=== PATIENT | female | born 2000 | race Caucasian/White ===

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

== ENCOUNTER 2020-10-31 09:55 | Emergency (ER) | payer MEDICARE, BC, OTHER, SELFPAY ==
--- NOTE | ~2020-10-31 | XR_ITS ---
XR ankle LT min 3V 10/31/2020 11:10 INDICATION: Left ankle pain. Loose. PROCEDURE: 4 views left ankle COMPARISON: No prior studies for comparison. FINDINGS: Fracture, dislocation or subluxation is not identified. There is mild soft tissue swelling medial to the ankle/midfoot. No foreign bodies are identified. IMPRESSION: 1: NO ACUTE BONE OR JOINT ABNORMALITY IDENTIFIED. Reviewed, dictated and finalized at location A.
[2020-10-31 10:41] VITALS: BP 110/65; PULSE 80; RESP 16; TEMP 36.6; O2SAT 100
[2020-10-31 11:09] VITALS: BP 112/68; PULSE 80; RESP 18; TEMP 36.6; O2SAT 100
--- NOTE | 2020-10-31 12:01 | ED.LOWEXIN ---
HPI - Extremity Injury (Lower) General Chief Complaint: Extremity Injury, Lower Stated Complaint: ankle injury Time Seen by Provider: 10/31/20 11:11 Source: patient and family Mode of arrival: ambulatory Limitations: no limitations History of Present Illness HPI Narrative: This is a 20-year-old female that presents to the emergency department for left ankle pain present over the last week. Does not report any certain injury to the area. Pain is on the medial aspect of the ankle and worse with weightbearing. Relieved with anti-inflammatories. Denies decreased range of motion or numbness. Related Data Home Medications Medication Instructions Recorded Confirmed baclofen 20 mg PO BID 03/11/19 03/23/19 norethindrone acetate 5 mg PO HS 03/11/19 05/15/19 oxcarbazepine 300 mg PO BID 03/11/19 05/15/19 zonisamide [Zonegran] 100 mg PO BID 03/11/19 05/15/19 Allergies Allergy/AdvReac Type Severity Reaction Status Date / Time No Known Allergies Allergy Verified 05/15/19 15:34 Review of Systems Review of Systems: CONSTITUTIONAL: Denies fever MUSCULOSKELETAL: Reports joint pain, and myalgia. 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 Father No problems noted. Social History Social History Social History: The patient lives at home with her parents. She is a senior in high school where she attends modified classes due to her intellectual disability. She ambulates with a cane at home but uses a wheelchair at school. She is the youngest of 3 children. Primary care physician: Dr. Alla Polo ([facility] [place], [place]) Smoking status: Never smoker Alcohol intake: never Substance use: never Substance use type: does not use Gender identity (if verbalized by the patient): Female Spiritual care concerns: No Agree to blood products: Yes Exam Narrative: GENERAL: Well-appearing, well-nourished, and in no acute distress. HEAD: Normocephalic, atraumatic. EYES: EOMI. EXTREMITIES: Normal range of motion. No edema or obvious deformity. Normal DP pulses. Normal sensation SKIN: Warm, dry, no rash. NEURO: No focal deficits. Alert and oriented x3. PSYCH: Normal mood and affect Course Vital Signs Vital signs: Vital Signs Temperature 97.9 F 10/31/20 10:41 Pulse Rate 80 10/31/20 10:41 Respiratory Rate 16 10/31/20 10:41 Blood Pressure 110/65 10/31/20 10:41 Pulse Oximetry 100 10/31/20 10:41 Temperature 97.8 F 10/31/20 11:09 Pulse Rate 80 10/31/20 11:09 Respiratory Rate 18 10/31/20 11:09 Blood Pressure 112/68 10/31/20 11:09 Pulse Oximetry 100 10/31/20 11:09 MDM - Extremity Injury (Lower) MDM Narrative Medical decision making narrative: Patient presents to the emergency department for left ankle pain present x1 week. No certain injury noted. Left ankle x-ray is without acute osseous abnormalities. She is neurovascularly intact. Patient instructed to rest, ice and take [id number] pain medication as needed. She is to follow-up with primary care doctor. She was given warnings to return to the ER Imaging Data Radiologist's impression: ITS Impressions Ankle X-Ray 10/31/20 11:12 IMPRESSION: 1: NO ACUTE BONE OR JOINT ABNORMALITY IDENTIFIED. Luis
== END 2020-10-31 12:24 | disposition home or self-care (01) ==
PROVIDERS: Emergency Provider Emergency Medicine
DX: M25.572 Pain in left ankle and joints of left foot (principal)
CPT/HCPCS: 73610; 99283

== ENCOUNTER 2021-02-11 13:48 | Emergency (ER) | payer MEDICARE, BC, SELFPAY ==
--- NOTE | 2021-02-11 14:28 | ED.URI ---
HPI - URI/Sore Throat General Chief Complaint: Upper Respiratory Infection Stated Complaint: runny nose,cough,fever Time Seen by Provider: 02/11/21 14:08 Source: patient and RN notes reviewed History of Present Illness HPI Narrative: Patient is a 20-year-old female who presents the urgent care with her mother with complaints of runny nose, nasal drainage, cough and low-grade fever. Patient is fairly nonverbal and mother speaks for the patient. States that she was sent home from school today for a 99.1 Fahrenheit temperature. Mother states that she did keep her home the last 2 days prior. States that she has been giving her Mucinex DM, Tylenol, ibuprofen as needed. Patient is vaccinated and has had no recent exposures to influenza, strep or Covid. Mother states her symptoms started approximately 5 days ago and she thought that she seemed much better over the last 4 days . No other acute complaints. No acute distress noted. Mother aware of the plan of care. Some parts of this dictation were generated by voice recognition software and may contain typographical and/or grammatical inaccuracies. Related Data Home Medications Medication Instructions Recorded Confirmed oxcarbazepine 300 mg PO BID 03/11/19 12/18/20 zonisamide [Zonegran] 100 mg PO BID 03/11/19 12/18/20 sertraline 100 mg tablet 100 mg PO DAILY 11/18/20 12/18/20 progesterone micronized 100 mg PO QAM 02/11/21 02/11/21 Allergies Allergy/AdvReac Type Severity Reaction Status Date / Time No Known Allergies Allergy Verified 02/11/21 14:48 Review of Systems Review of Systems: CONSTITUTIONAL: Reports of low-grade fever EYES: Denies visual changes, redness, or discharge. ENT: Reports of postnasal drainage, rhinorrhea CARDIOVASCULAR: Denies chest pain, palpitations, or edema. RESPIRATORY: Reports a mild cough without dyspnea GASTROINTESTINAL: Denies abdominal pain, nausea, vomiting, or diarrhea. GENITOURINARY: Denies dysuria or hematuria. SKIN: Denies rash or itching. MUSCULOSKELETAL: Denies back pain, joint pain, or myalgia. NEUROLOGIC: Denies headache, numbness, or weakness. All other systems reviewed are negative, except as documented in HPI. 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 Social History Social History Social History: The patient lives at home with her mother . She is a senior in high school where she attends modified classes due to her intellectual disability. She ambulates with a cane at home but uses a wheelchair at school. She is the youngest of 3 children. Primary care physician: Dr. Alla Polo ([facility] [place], [place]) Smoking packs per day: 0 Smoking cigarettes per day: 0.0 Smoking status: Never smoker Second hand tobacco smoke exposure: No Alcohol intake: never Substance use: never Substance use type: does not use Gender identity (if verbalized by the patient): Female Sexual Orientation (if Verbalized by the Patient): Straight or Heterosexual Spiritual care concerns: No Agree to blood products: Yes Comments At the time of my signature, I reviewed and agree with the nursing past medical, surgical, social, and family history. There is no relev
[2021-02-11 14:33] VITALS: BP 109/64; PULSE 92; RESP 18; TEMP 36.8; O2SAT 97
== END 2021-02-11 15:00 | disposition home or self-care (01) ==
PROVIDERS: Emergency Provider Nurse Practitioner Family; PCP Family Medicine
DX: J06.9 Acute upper respiratory infection, unspecified (principal)
CPT/HCPCS: 99211; G0463

== ENCOUNTER 2021-05-15 13:32 | Emergency (ER) | payer MEDICARE, BC, SELFPAY ==
--- NOTE | ~2021-05-15 | XR_ITS ---
XR wrist LT min 3V 05/15/2021 16:07 INDICATION: Left wrist pain PROCEDURE: 4 views left wrist COMPARISON: No prior studies for comparison. FINDINGS: Fracture, dislocation or subluxation is not identified. The soft tissues appear within norm al limits. No foreign bodies are identified. IMPRESSION: 1: NO ACUTE BONE OR JOINT ABNORMALITY IDENTIFIED. Reviewed, dictated and finalized at location A. ONAL CARER
--- NOTE | ~2021-05-15 | XR_ITS ---
o XR forearm LT 2V 05/15/2021 16:06 INDICATION: Left arm pain PROCEDURE: 2 views left forearm COMPARISON: No prior studies for comparison. FINDINGS: Fracture, dislocation or subluxation is not identified. The soft tissues appear within norm al limits. No foreign bodies are identified. IMPRESSION: 1: NO ACUTE BONE OR JOINT ABNORMALITY IDENTIFIED. Reviewed, dictated and finalized at location A. [employer] AND B[employer] COLLECTION CLERK
[2021-05-15 13:35] VITALS: BP 134/77; PULSE 91; RESP 18; TEMP 36.4; O2SAT 100
--- NOTE | 2021-05-15 16:25 | ED.UPPEXIN ---
HPI - Extremity Injury (Upper) General Chief Complaint: Extremity Injury, Upper Stated Complaint: fall/left arm pain Time Seen by Provider: 05/15/21 15:52 Source: patient and family (mother) Mode of arrival: ambulatory Limitations: no limitations History of Present Illness HPI narrative: This is 20 year old female with cognitive delay and schizocephaly who presents for evaluation of left fore arm pain. Patient's mother is at bedside and she states patient fell on Tuesday. She did not hit her head, but she fell onto her left forearm. Patient has been doing well. Her mother states patient started complaining of left forearm pain in PE so she brought patient to ER. Patient denies having pain anywhere else. Related Data Home Medications Medication Instructions Recorded Confirmed oxcarbazepine 300 mg PO BID 03/11/19 02/19/21 zonisamide [Zonegran] 100 mg PO BID 03/11/19 02/19/21 sertraline 100 mg tablet 100 mg PO DAILY 11/18/20 02/19/21 progesterone micronized 100 mg PO QAM 02/11/21 02/19/21 Allergies Allergy/AdvReac Type Severity Reaction Status Date / Time No Known Allergies Allergy Verified 05/15/21 15:46 Review of Systems Review of Systems: ROS unobtainable: Yes unobtainable due to medical condition PMFSH Past Medical History Medical History Abnormality of gait Developmental delay, moderate History of frequent ear infections Intellectual disability Obesity, morbid, BMI 40.0-49.9 OCD (obsessive compulsive disorder) Schizencephaly Seizures Spastic hemiplegic cerebral palsy Surgical History Surgical History History of bilateral femoral derotational osteotomy Due to femoral anteversion Family History Family History Father Diabetes mellitus Congestive heart failure Heart attack Father COVID Father , covid with respiratory failure No problems noted. Social History Social History (Updated 02/19/21 @ 15:38 by Estephania Ha) Social History: The patient lives at home with her mother . She is a senior in high school where she attends modified classes due to her intellectual disability. She ambulates with a cane at home but uses a wheelchair at school. She is the youngest of 3 children. Primary care physician: Dr. Alla Polo ([facility] [place], [place]) Smoking packs per day: 0 Smoking cigarettes per day: 0.0 Smoking status: Never smoker Second hand tobacco smoke exposure: No Alcohol intake: never Substance use: never Substance use type: does not use Gender identity (if verbalized by the patient): Female Sexual Orientation (if Verbalized by the Patient): Straight or Heterosexual Spiritual care concerns: No Agree to blood products: Yes Exam Const: General: no acute distress and alert Chest: Chest palpation & inspection: normal inspection of the chest Resp: Effort & Inspection: normal respiratory effort Cardio: Other: palpable bilateral radial pulses Extrem: Other: FROM left arm, no swelling, no deformity. no bruising Psych: Mental Status: mental status grossly normal Affect: normal affect Course Reevaluation(s) Reevaluation #1: I Discussed with patient and mother xray was negative. She decline medication for pain here. She states she will give her medication at home. Date: 05/15/21 Time: 16:29 Vital Signs Vital signs: Vital Signs Temperature 97.5 F L 05/15/21 13:35 Pulse Rate 91 05/15/21 13:35 Respiratory Rate 18 05/15/21 13:35 Blood Pressure 134/77 05/15/21 13:35 Pulse Oximetry 100 05/15/21 13:35 Temperature 97.5 F L 05/15/21 13:35 Pulse Rate 91 05/15/21 13:35 Respiratory Rate 18 05/15/21 13:35 Blood Pressure 134/77 05/15/21 13:35 Pulse Oximetry 100 05/15/21 13:35 MDM - Extremity Injury (Upper) Imag
== END 2021-05-15 16:38 | disposition home or self-care (01) ==
PROVIDERS: Emergency Provider General Practice; PCP Family Medicine
DX: S50.12XA Contusion of left forearm, initial encounter (principal); R62.50 Unspecified lack of expected normal physiological development in childhood; E66.01 Morbid (severe) obesity due to excess calories; Z68.37 Body mass index [BMI] 37.0-37.9, adult; F42.9 Obsessive-compulsive disorder, unspecified; G80.2 Spastic hemiplegic cerebral palsy; Q04.6 Congenital cerebral cysts; W19.XXXA Unspecified fall, initial encounter
CPT/HCPCS: 73090; 73110; 99283

== ENCOUNTER 2021-06-02 08:07 | Outpatient (CLI) | payer MEDICARE, BC, SELFPAY ==
[2021-06-02 09:30] LABS: Add Urine Microscopic? YES; Appearance Urine Cloudy (Clear); Bilirubin Urine Negative (Negative); Blood Urine Negative (Negative); Color Urine Yellow (Yellow); Glucose Urine UA Negative (Negative); Ketones Urine Negative (Negative); Leukocyte Esterase Ur 1+ LEU/UL (Negative); Mucus Urine Rare /lpf; Nitrate Urine Negative (Negative); Protein Urine Negative (Negative); Specific Grav Ur 1.014 (1.001-1.035); Squamous Epithelial Cell Urine Few /hpf (Few); Urobilinogen Urine Negative mg/dL (<2.0); WBC Urine 21-30 /hpf
== END 2021-06-02 08:08 | disposition home or self-care (01) ==
LOC: ANHLAB 08:13
PROVIDERS: PCP Family Medicine; Visit Provider Nurse Practitioner Gerontology
DX: R30.0 Dysuria (principal)
CPT/HCPCS: 81001; 87086; 87088

== ENCOUNTER 2021-07-29 13:48 | Emergency (ER) | payer MEDICARE, BC, SELFPAY ==
--- NOTE | ~2021-07-29 | XR_ITS ---
EXAMINATION: XR chest 2V Exam Date/Time: 07/29/2021 14:45 CDT CLINICAL HISTORY: COUGH, UPPER RESP CONGESTION, PT HELD DUE TO COND Comparison: 03/11/2019. RESULT: Lines, tubes, and devices: None. Lungs and pleura: Clear. Cardiomediastinal silhouette: Stable cardiomediastinal silhouette. Other: No acute osseous or upper abdominal finding. Lateral scoliosis versus positioning artifact, e xaggerated thoracic kyphosis and stable lower thoracic anterior wedge deformities. IMPRESSION: No acute cardiopulmonary process Reviewed, dictated and finalized at location K.
[2021-07-29 14:03] VITALS: BP 131/71; PULSE 94; RESP 20; TEMP 36.8; O2SAT 98
--- NOTE | 2021-07-29 14:28 | ED.URI ---
HPI - URI/Sore Throat General Chief Complaint: Upper Respiratory Infection Stated Complaint: sorethroat Time Seen by Provider: 07/29/21 14:29 Source: patient, family, RN notes reviewed and old records reviewed Mode of arrival: ambulatory Limitations: no limitations History of Present Illness HPI Narrative: 20 year old female who presents to [facility] care accompanied by mother with complaints of sore throat and cough for one week duration. Mother reports that patient cries when she coughs and her chest hurts when she coughs. 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 Mother reports that she has given daughter Mucinex and also some Aleve for her symptoms. Mother reports that daughter has had Scot and Scot Covid shot but no booster or flu shot, reports all other immunizations are up to date.Mother reports that she did home COVID test today prior to visit that was negative.Patient has nasal congestion and drainage, tonsils are enlarged with no redness noted on exam, frequent cough noted which is nonproductive, SAO2 98% on room air. MD elicited complaint: cough, sore throat, rhinorrhea and nasal congestion Pertinent past history: tympanostony tubes Onset (ago): week(s) (1) Consistency: progressively worsening Severity: moderate Description of mucous: clear Able to tolerate fluids by mouth: Yes Exacerbating factors: swallowing and exertion Relieving factors: nothing Associated symptoms: rhinorrhea, nasal congestion, sore throat, cough, chest pain (with cough) and other Treatments prior to arrival: other (Mucinex, Aleve,Zyrtec) Related Data Home Medications Medication Instructions Recorded Confirmed Lacto.acidophilus-Bif.animalis 1 cap PO DAILY 07/29/21 07/29/21 [Daily Probiotic] lysine [L-Lysine] 1,000 mg PO DAILY 07/29/21 07/29/21 npdknfzewvfa-hsu-jsow-FA-vit K 1 tablet PO DAILY 07/29/21 07/29/21 [Adults Multivitamin] norethindrone acetate 5 mg PO DAILY 07/29/21 07/29/21 oxcarbazepine 300 mg PO BID 07/29/21 07/29/21 sertraline 100 mg PO DAILY 07/29/21 07/29/21 vitamin B complex [B Complex] 1 tablet PO DAILY 07/29/21 07/29/21 zonisamide 100 mg PO BID 07/29/21 07/29/21 Allergies Allergy/AdvReac Type Severity Reaction Status Date / Time No Known Allergies Allergy Verified 07/29/21 14:10 Review of Systems Review of Systems: CONSTITUTIONAL: No known fever, chills,or sweats reported EYES: Denies visual changes, redness, or discharge. ENT: Positive for rhinorrhea, congestion, sore throat, no otalgia. CARDIOVASCULAR: positive chest pain with cough,no palpitations, or edema. RESPIRATORY: Positive for cough no dyspnea. GASTROINTESTINAL: Denies abdominal pain, nausea, vomiting, or diarrhea. GENITOURINARY: Denies dysuria or hematuria. SKIN: Denies rash or itching. MUSCULOSKELETAL: Denies back pain, joint pain, or myalgia requires cane to assist with ambulation NEUROLOGIC: Denies headache, numbness, or weakness. PSYCHIATRIC: Positive for anxiety and depression All systems reviewed & are unremarkable except as noted in HPI and below PMFSH Past Medical History Medical History Abnormality of gait Developmental delay, moderate History of frequent ear infections Intellectual disability Obesity, morbid, BMI 40.0-49.9 OCD (obsessive compulsive disorder) Schizencephaly Seizures Spastic hemiplegic cerebral palsy Surgical History Surgical History History of bilateral femoral derotational osteotomy Due to femoral anteversion Family History Family History Father Diabetes mellitus Congestive heart failure Heart attack Father COVID Father , covid with respiratory failure No problems noted. Social History Social History (Reviewed 07/29/21 @ 14:30 by Nicole Arreaga
== END 2021-07-29 15:05 | disposition home or self-care (01) ==
PROVIDERS: Emergency Provider Registered Nurse; PCP Family Medicine
DX: J06.9 Acute upper respiratory infection, unspecified (principal); R05.9 Cough, unspecified; E66.01 Morbid (severe) obesity due to excess calories; Z68.38 Body mass index [BMI] 38.0-38.9, adult; F42.9 Obsessive-compulsive disorder, unspecified; G40.909 Epilepsy, unspecified, not intractable, without status epilepticus; G80.2 Spastic hemiplegic cerebral palsy; Q04.6 Congenital cerebral cysts; F81.9 Developmental disorder of scholastic skills, unspecified; F79 Unspecified intellectual disabilities
CPT/HCPCS: 71046; 87081; 87804; 87880; 99213; G0463

== ENCOUNTER 2021-10-26 23:02 | Emergency (ER) | payer MEDICARE, BC, SELFPAY ==
--- NOTE | ~2021-10-26 | CT_ITS ---
EXAMINATION: CT abdomen pelvis w con DATE: 10/27/2021 02:30 INDICATION: Mid abdominal pain and diarrhea TECHNIQUE: Computed tomography (CT) of the abdomen and pelvis was performed without with 100 cc Omnip aque 350 intravenous contrast. The dose-length product was 1308.95 mGy-cm. Automated exposure control and iterative reconstruction technique were employed. COMPARISON: None. FINDINGS: Lung bases unremarkable. Heart size normal. No significant pleural or pericardial abnormali ty. Study limited by motion artifact. The liver, spleen, pancreas, adrenal glands and kidneys are unr emarkable. Gallbladder is present. No evidence for appendicitis or diverticulitis. There is radiopaque debris in the proximal colon and terminal ileum. No acute osseous abnormality. The bladder is decompressed limiting evaluation for geo dder wall thickening. IMPRESSION: 1. No acute abdominal abnormality. Reviewed, dictated and finalized at location B.
[2021-10-26 23:04] VITALS: BP 143/84; PULSE 89; RESP 20; TEMP 36.6; O2SAT 96
--- NOTE | 2021-10-26 23:48 | ED.ABDPAIN ---
HPI - Abdominal Pain General Chief Complaint: Abdominal Pain Stated Complaint: SEVERE AND PAIN Time Seen by Provider: 10/26/21 23:41 History of Present Illness HPI narrative: Is a 21-year-old female who is disabled presents emergency room coming by family member. She comes in secondary to abdominal pain. She had some diarrhea earlier today and was sent home from school. However she is complaining of pain in the midportion of her abdomen which started at 6 PM today. Is gotten progressively worse. She never had pain like this before. No nausea vomiting. No chills or fevers. No cough or congestion. She has had no difficulty with urination. No chronic abdominal pain issues have been noted. Related Data Home Medications Medication Instructions Recorded Confirmed Lactobacillus 1 cap PO DAILY 07/29/21 08/06/21 acidophilus-Bifidobac.animalis 2.5 billion cell capsule (Daily Probiotic) lysine 1,000 mg tablet 1,000 mg PO DAILY 07/29/21 08/06/21 multivit with minerals-iron 18 1 tablet PO DAILY 07/29/21 08/06/21 mg-folic ac 400 mcg-vit K 25 mcg tablet (Adults Multivitamin) norethindrone acetate 5 mg tablet 5 mg PO DAILY 07/29/21 08/06/21 oxcarbazepine 300 mg tablet 300 mg PO BID 07/29/21 08/06/21 sertraline 100 mg tablet 100 mg PO DAILY 07/29/21 08/06/21 vitamin B complex 1 tablet PO DAILY 07/29/21 08/06/21 zonisamide 100 mg capsule 100 mg PO BID 07/29/21 08/06/21 Allergies Allergy/AdvReac Type Severity Reaction Status Date / Time corn Allergy Diarrhea Verified 10/26/21 23:08 orange juice Allergy Diarrhea Verified 10/26/21 23:08 Review of Systems Review of Systems: CONSTITUTIONAL: Denies fever, chills, or sweats. EYES: Denies visual changes, redness, or discharge. ENT: Denies rhinorrhea, congestion, sore throat, or otalgia. CARDIOVASCULAR: Denies chest pain, palpitations, or edema. RESPIRATORY: Denies cough or dyspnea. GASTROINTESTINAL: Abdominal pain with diarrhea. No vomiting . GENITOURINARY: Denies dysuria or hematuria. SKIN: Denies rash or itching. MUSCULOSKELETAL: Denies back pain, joint pain, or myalgia. NEUROLOGIC: Denies headache, numbness, or weakness. PSYCHIATRIC: Flat affect and will answer most of my questions. [facility] Past Medical History Medical History Abnormality of gait Developmental delay, moderate History of frequent ear infections Intellectual disability Obesity, morbid, BMI 40.0-49.9 OCD (obsessive compulsive disorder) Schizencephaly Seizures Spastic hemiplegic cerebral palsy Surgical History Surgical History History of bilateral femoral derotational osteotomy Due to femoral anteversion Family History Family History Father Diabetes mellitus Congestive heart failure Heart attack Father COVID Father , covid with respiratory failure No problems noted. Social History Social History Social History: The patient lives at home with her mother . She is a senior in high school where she attends modified classes due to her intellectual disability. She ambulates with a cane at home but uses a wheelchair at school. She is the youngest of 3 children. Primary care physician: Dr. Alla Polo ([facility] [place], [place]) Smoking packs per day: 0 Smoking cigarettes per day: 0.0 Smoking status: Never smoker Second hand tobacco smoke exposure: No Alcohol intake: never Substance use: never Substance use type: does not use Gender identity (if verbalized by the patient): Female Sexual Orientation (if Verbalized by the Patient): Straight or Heterosexual Spiritual care concerns: No Agree to blood products: Yes Exam Narrative: APPEARANCE: Well appearing, no pain or distress, well-nourished. Patient is o
[2021-10-27 00:12] LABS: Basophils Percent Auto 0.5 % (0.2-1.2); Eosinophils Absolute Auto 0.2 K/mm3 (0-0.3); Eosinophils Percent Auto 2.5 % (0-4.4); Hematocrit 44.6 % (37.0-47.0); Hemoglobin 14.6 g/dL (12.0-15.0); Immature Granulocyte Absolute 0.03 K/mm3 (0.00-0.031); Immature Granulocyte Percent A 0.4 % (0-0.5); Lymphocytes Absolute Auto 2.89 K/mm3 (0.9-3.2); Lymphocytes Percent Auto 36.4 % (18.3-44.2); Mean Corpuscular HGB Conc 32.7 g/dl (32-36); Mean Corpuscular Hemoglobin 29.5 pg (26-34); Mean Corpuscular Volume 90.1 fl (80-100); Mean Platelet Volume 8.4 fl (7.4-10.4); Monocytes Absolute Auto 0.6 K/mm3 (0.1-0.6); Monocytes Percent Auto 8.1 % (2.6-8.5); Neutrophils Absolute Auto 4.1 K/mm3 (1.3-6.7); Neutrophils Percent Auto 52.1 % (45.5-73.1); Platelet Count Result 374 k/mm3 (150-375); Red Blood Count 4.95 M/mm3 (4.2-5.4); White Blood Count 7.9 K/mm3 (4.5-10.0)
[2021-10-27 00:19] LABS: Alanine Aminotransferase 22 U/L (6-35); Albumin Level 4.6 g/dL (3.5-5.1); Alkaline Phosphatase 67 U/L (38-126); Anion Gap 13 mmol/L (8-16); Aspartate Amino Transferase 27 U/L (14-36); Bilirubin,Total 0.4 mg/dL (0.2-1.3); Blood Urea Nitrogen 14 mg/dL (7-17); Calcium 9.2 mg/dL (8.4-10.2); Carbon Dioxide 21 mmol/L (22-30); Chloride 105 mmol/L (98-107); Estimated Glomerular Filt Rate > 60; Glucose 87 mg/dL (65-110); Lipase 151 U/L (23-300); Sodium 139 mmol/L (137-145)
[2021-10-27] MEDS: SODIUM CHLORIDE 0.9% IV 1,000 ML 999 ML IV CONT (00:55)
[2021-10-27 01:39] VITALS: BP 127/91; PULSE 86; RESP 18; O2SAT 98
[2021-10-27 01:40] LABS: SPREG INTERNAL CONTROL Positive; Serum Qual hCG Negative
[2021-10-27] MEDS: KETOROLAC 15 MG/ML VIAL (*BKC) IV PUSH (01:53)
[2021-10-27 02:17] LABS: Appearance Urine Clear (Clear); Bilirubin Urine Negative (Negative); Blood Urine Negative (Negative); Color Urine Yellow (Yellow); Glucose Urine UA Negative (Negative); Ketones Urine Negative (Negative); Leukocyte Esterase Ur Negative LEU/UL (Negative); Nitrate Urine Negative (Negative); Protein Urine Negative (Negative); Specific Grav Ur 1.025 (1.001-1.035); Urobilinogen Urine 0.2 mg/dL (<2.0); pH Urine 5.5 (5.0-9.0)
[2021-10-27 02:22] LABS: Add Urine Microscopic? NO
[2021-10-27 02:34] VITALS: O2SAT 99
[2021-10-27 02:45] VITALS: O2SAT 97
[2021-10-27 03:00] VITALS: BP 138/78; PULSE 78; RESP 18; O2SAT 99
[2021-10-27 04:56] VITALS: BP 138/78; PULSE 82; RESP 18; O2SAT 98
== END 2021-10-27 04:58 | disposition home or self-care (01) ==
PROVIDERS: Emergency Provider Emergency Medicine; PCP Family Medicine
DX: K57.90 Diverticulosis of intestine, part unspecified, without perforation or abscess without bleeding (principal); R62.50 Unspecified lack of expected normal physiological development in childhood; F79 Unspecified intellectual disabilities; F42.9 Obsessive-compulsive disorder, unspecified; Q04.6 Congenital cerebral cysts; G80.2 Spastic hemiplegic cerebral palsy; E66.01 Morbid (severe) obesity due to excess calories; Z68.41 Body mass index [BMI] 40.0-44.9, adult
CPT/HCPCS: 36415; 74177; 80053; 81003; 83690; 84703; 85025; 96361; 96374; 96375; 99284; J0131; J1885; J7030; Q9967

== ENCOUNTER 2021-11-02 16:46 | Outpatient (CLI) | payer MEDICARE, BC, SELFPAY ==
[2021-11-02 17:51] LABS: Appearance Urine Clear (Clear); Bilirubin Urine Negative (Negative); Blood Urine Negative (Negative); Color Urine Yellow (Yellow); Glucose Urine UA Negative (Negative); Ketones Urine Trace mg/dL (Negative); Leukocyte Esterase Ur Negative LEU/UL (Negative); Nitrate Urine Negative (Negative); Protein Urine Negative (Negative); Specific Grav Ur >= 1.030 (1.001-1.035); Urobilinogen Urine 0.2 mg/dL (<2.0); pH Urine 5.5 (5.0-9.0)
[2021-11-02 18:01] LABS: Mucus Urine Rare /lpf; RBC Urine 0-2 /hpf (0-2); Squamous Epithelial Cell Urine Moderate /hpf (Few); WBC Urine 0-3 /hpf
[2021-11-02 18:03] LABS: Add Urine Microscopic? YES
== END 2021-11-02 16:47 | disposition home or self-care (01) ==
PROVIDERS: PCP Family Medicine; Visit Provider Physician Assistant
DX: R30.0 Dysuria (principal)
CPT/HCPCS: 81001

== ENCOUNTER 2021-12-14 17:44 | Emergency (ER) | payer MEDICARE, BC, SELFPAY ==
--- NOTE | ~2021-12-14 | CT_ITS ---
EXAMINATION: CT abdomen pelvis w con DATE: 12/14/2021 21:43 INDICATION: abdominal pain TECHNIQUE: Computed tomography (CT) of the abdomen and pelvis was performed with 100 mL Omnipaque-350 intravenous contrast. Automated exposure control and iterative reconstruction technique were employe d. The dose-length product was 1396.96 mGy-cm. COMPARISON: 10/27/2021. FINDINGS: Examination mildly limited by motion and beam hardening artifact. Lower thorax: Unremarkable Liver: Normal. Biliary/Gallbladder: Gallbladder is normal. No bile duct dilation. Pancreas: No mass or duct dilation. Spleen: Normal. Adrenals:No mass. Kidneys: No mass, stone, or hydronephrosis. GI tract: No small or large bowel dilation. Normal appendix. Mild colonic wall edema, most evident fr om the hepatic flexure to the splenic flexure. Mesentery/Peritoneum: No ascites, mass, or free air. Retroperitoneum: No mass. Pelvis: Pelvic organs are within normal limits. Stable Bartholin's gland duct cyst Soft Tissues: Soft tissues and body wall unremarkable. Bones: No acute osseous finding. IMPRESSION: Mild transverse colonic wall edema, may reflect a component of infectious or inflammatory colitis in the appropriate clinical context. Otherwise, no acute abdominopelvic process detected. Reviewed, dictated and finalized at location K. IMPRESSION: Mild transverse colonic wall edema, may reflect a component of infectious or in flammatory colitis in the appropriate clinical context. Otherwise, no acute abd ominopelvic process detected.
[2021-12-14 18:49] VITALS: BP 139/76; PULSE 91; RESP 18; TEMP 36.5; O2SAT 100
--- NOTE | 2021-12-14 19:26 | ED.GENADULT ---
HPI - General Adult General Chief complaint: Abdominal Pain Stated complaint: abd pain Time Seen by Provider: 12/14/21 18:57 History of Present Illness HPI narrative: 21-year-old female with history of spastic hemiplegic cerebral palsy and developmental delay presented emerged department for evaluation of constipation abdominal pain. Patient had recently had her new DEXA stopped. Family states that the last dose was on . Patient needed this medication weaned due to persistent diarrhea from this medication. Patient did have a bowel movement on Tuesday but no bowel movement on Tuesday. Today prior to arrival patient was complaining of generalized abdominal pain and mother reports that the patient was tearful and sweating. Upon arrival to the emergency department patient appears to be resting comfortably and states she does feel improved. Patient states she does still have a small amount of abdominal pain. Related Data Home Medications Medication Instructions Recorded Confirmed Lactobacillus 1 cap PO DAILY 07/29/21 11/03/21 acidophilus-Bifidobac.animalis 2.5 billion cell capsule (Daily Probiotic) lysine 1,000 mg tablet 1,000 mg PO DAILY 07/29/21 11/03/21 multivit with minerals-iron 18 1 tablet PO DAILY 07/29/21 11/03/21 mg-folic ac 400 mcg-vit K 25 mcg tablet (Adults Multivitamin) norethindrone acetate 5 mg tablet 5 mg PO DAILY 07/29/21 11/03/21 oxcarbazepine 300 mg tablet 300 mg PO BID 07/29/21 11/03/21 sertraline 100 mg tablet 100 mg PO DAILY 07/29/21 11/03/21 vitamin B complex 1 tablet PO DAILY 07/29/21 11/03/21 zonisamide 100 mg capsule 100 mg PO BID 07/29/21 11/03/21 Allergies Allergy/AdvReac Type Severity Reaction Status Date / Time corn Allergy Diarrhea Verified 12/14/21 19:03 orange juice Allergy Diarrhea Verified 12/14/21 19:03 Review of Systems Review of Systems: CONSTITUTIONAL: Denies fever, chills, or sweats. EYES: Denies visual changes, redness, or discharge. ENT: Denies rhinorrhea, congestion, sore throat, or otalgia. CARDIOVASCULAR: Denies chest pain, palpitations, or edema. RESPIRATORY: Denies cough or dyspnea. GASTROINTESTINAL: See HPI GENITOURINARY: Denies dysuria or hematuria. SKIN: Denies rash or itching. MUSCULOSKELETAL: Denies back pain, joint pain, or myalgia. NEUROLOGIC: Denies headache, numbness, or weakness. [facility] Past Medical History Medical History Abnormality of gait Developmental delay, moderate History of frequent ear infections Intellectual disability Obesity, morbid, BMI 40.0-49.9 OCD (obsessive compulsive disorder) Schizencephaly Seizures Spastic hemiplegic cerebral palsy Surgical History Surgical History History of bilateral femoral derotational osteotomy Due to femoral anteversion Family History Family History Father Diabetes mellitus Congestive heart failure Heart attack Father COVID Father , covid with respiratory failure No problems noted. Social History Social History (Updated 11/03/21 @ 14:02 by Estephania Ha) Social History: The patient lives at home with her mother . She is a senior in high school where she attends modified classes due to her intellectual disability. She ambulates with a cane at home but uses a wheelchair at school. She is the youngest of 3 children. Primary care physician: Dr. Alla Polo ([facility] [place], [place]) Smoking packs per day: 0 Smoking cigarettes per day: 0.0 Smoking status: Never smoker Second hand tobacco smoke exposure: No Alcohol intake: never Substance use: never Substance use type: does not use Gender identity (if verbalized by the patient): Female Sexual Orientation (if Verbalized by the Patient): Straight or Heterosexual Spiritual care concerns: No Agree to blood
[2021-12-14 19:49] LABS: Basophils Percent Auto 0.4 % (0.2-1.2); Eosinophils Absolute Auto 0.1 K/mm3 (0-0.3); Eosinophils Percent Auto 1.3 % (0-4.4); Hematocrit 45.7 % (37.0-47.0); Hemoglobin 15.5 g/dL (12.0-15.0); Immature Granulocyte Absolute 0.02 K/mm3 (0.00-0.031); Immature Granulocyte Percent A 0.3 % (0-0.5); Immature Platelet Fraction Pct 1.1 % (0.9-11.2); Lymphocytes Percent Auto 26.9 % (18.3-44.2); Mean Corpuscular HGB Conc 33.9 g/dl (32-36); Mean Corpuscular Hemoglobin 30.4 pg (26-34); Mean Corpuscular Volume 89.6 fl (80-100); Mean Platelet Volume 8.5 fl (7.4-10.4); Monocytes Absolute Auto 0.5 K/mm3 (0.1-0.6); Monocytes Percent Auto 7.3 % (2.6-8.5); Neutrophils Absolute Auto 4.8 K/mm3 (1.3-6.7); Neutrophils Percent Auto 63.8 % (45.5-73.1); Platelet Count Result 416 k/mm3 (150-375); Red Cell Distribution Width 12.4 % (11.5-14.5); White Blood Count 7.4 K/mm3 (4.5-10.0)
[2021-12-14 20:14] LABS: Platelet Estimate Increased (Adequate); Schistocytes None Seen (NORMAL)
[2021-12-14] MEDS: SODIUM CHLORIDE 0.9% IV 1,000 ML 999 ML IV CONT (20:24)
[2021-12-14] MEDS: HYDROmorphone HCL INJ (*CRX) 1 MG/ML SYR 0.5 MG IV PUSH (21:00)
[2021-12-14 21:22] LABS: Appearance Urine Cloudy (Clear); Bilirubin Urine 1+ (Negative); Blood Urine Negative (Negative); Color Urine Yellow (Yellow); Glucose Urine UA Negative (Negative); Ketones Urine 1+ mg/dL (Negative); Leukocyte Esterase Ur Negative LEU/UL (Negative); Nitrate Urine Negative (Negative); Protein Urine Negative (Negative); Urobilinogen Urine 0.2 mg/dL (<2.0)
[2021-12-14 21:23] LABS: Alanine Aminotransferase 68 U/L (6-35); Albumin Level 4.5 g/dL (3.5-5.1); Alkaline Phosphatase 77 U/L (38-126); Anion Gap 15 mmol/L (8-16); Aspartate Amino Transferase 46 U/L (14-36); Bilirubin,Total 0.4 mg/dL (0.2-1.3); Blood Urea Nitrogen 10 mg/dL (7-17); Calcium 9.2 mg/dL (8.4-10.2); Carbon Dioxide 21 mmol/L (22-30); Chloride 105 mmol/L (98-107); Estimated Glomerular Filt Rate > 60; Glucose 81 mg/dL (65-110); Lipase 113 U/L (23-300); Potassium 3.6 mmol/L (3.4-5.0); Sodium 141 mmol/L (137-145)
[2021-12-14 21:26] VITALS: BP 118/73; PULSE 76; RESP 16; O2SAT 97
[2021-12-14 21:31] LABS: Amorphous Sediment Urine Few; Mucus Urine Rare /lpf; RBC Urine 0-2 /hpf (0-2)
[2021-12-14 21:34] LABS: Add Urine Microscopic? YES
== END 2021-12-14 23:40 | disposition home or self-care (01) ==
PROVIDERS: Emergency Provider Emergency Medicine; PCP Family Medicine
DX: R10.9 Unspecified abdominal pain (principal); G80.2 Spastic hemiplegic cerebral palsy; R62.50 Unspecified lack of expected normal physiological development in childhood; F79 Unspecified intellectual disabilities; F42.9 Obsessive-compulsive disorder, unspecified; Q04.6 Congenital cerebral cysts; E66.8 Other obesity; Z68.41 Body mass index [BMI] 40.0-44.9, adult; R93.3 Abnormal findings on diagnostic imaging of other parts of digestive tract
CPT/HCPCS: 36415; 74177; 80053; 81001; 81025; 83605; 83690; 85025; 85055; 87086; 96361; 96374; 99284; J1170; J7030; Q9967

== ENCOUNTER 2022-01-06 15:55 | Outpatient (CLI) | payer MEDICARE, BC, SELFPAY ==
[2022-01-06 16:37] LABS: Add Urine Microscopic? YES; Appearance Urine Cloudy (Clear); Bilirubin Urine Negative (Negative); Blood Urine Negative (Negative); Color Urine Amber (Yellow); Glucose Urine UA Negative (Negative); Ketones Urine Negative (Negative); Leukocyte Esterase Ur Negative LEU/UL (Negative); Mucus Urine Rare /lpf; Nitrate Urine Positive (Negative); Protein Urine Negative (Negative); RBC Urine 0-2 /hpf (0-2); Specific Grav Ur 1.019 (1.001-1.035); Squamous Epithelial Cell Urine Many /hpf (Few); WBC Urine 0-3 /hpf
== END 2022-01-06 15:56 | disposition home or self-care (01) ==
LOC: ANHLAB 15:57
PROVIDERS: PCP Family Medicine; Visit Provider Physician Assistant
DX: R30.0 Dysuria (principal)
CPT/HCPCS: 81001

== ENCOUNTER 2022-01-16 13:41 | Outpatient (CLI) | payer MEDICARE, BC, SELFPAY ==
[2022-01-16 14:29] LABS: Appearance Urine Slightly Cloudy (Clear); Bilirubin Urine Negative (Negative); Blood Urine Negative (Negative); Color Urine Yellow (Yellow); Glucose Urine UA Negative (Negative); Ketones Urine Negative (Negative); Leukocyte Esterase Ur Negative LEU/UL (Negative); Nitrate Urine Negative (Negative); Protein Urine Negative (Negative); Urobilinogen Urine 0.2 mg/dL (<2.0)
[2022-01-16 14:41] LABS: Mucus Urine Rare /lpf; Squamous Epithelial Cell Urine Many /hpf (Few); WBC Urine 0-3 /hpf
[2022-01-16 14:42] LABS: Add Urine Microscopic? YES
== END 2022-01-16 13:42 | disposition home or self-care (01) ==
LOC: ANHLAB 13:43
PROVIDERS: PCP Family Medicine; Visit Provider Physician Assistant
DX: R30.0 Dysuria (principal)
CPT/HCPCS: 81001

== ENCOUNTER 2022-02-11 08:40 | Emergency (ER) | payer MEDICARE, BC, SELFPAY ==
--- NOTE | ~2022-02-11 | CT_ITS ---
EXAMINATION: CT brain wo con DATE: 02/11/2022 10:25 INDICATION: Head injury. TECHNIQUE: Computed tomography (CT) of the head was performed without intravenous contrast. The mA wa s adjusted according to patient size. Iterative reconstruction technique was employed. The dose-lengt h product was 529.67 mGy-cm. COMPARISON: None FINDINGS: There is a 2.5 x 2.1 cm arachnoid cyst anterior to left temporal lobe. There is a 1.1 x 1.6 cm arachnoid cyst in right sylvian fissure. There is bilateral schizencephaly. There is alcazar matter heterotopia at the lateral margins of the bodies of the lateral ventricles. There is no intracranial hemorrhage, acute infarction, or abnormal intracranial mass lesion. The ventricles are not dilated. T he orbits are normal. The paranasal sinuses are clear. Cerumen completely occludes left external elmo tory canal. There is cerumen in right external auditory canal. IMPRESSION: 1. Bilateral schizencephaly with alcazar matter heterotopia. 2. Cerumen completely occludes left external auditory canal. Reviewed, dictated and finalized at location A. E WAY OPERATOR
--- NOTE | ~2022-02-11 | CT_ITS ---
EXAMINATION: CT cervical spine wo con DATE: 02/11/2022 10:25 INDICATION: Head injury. TECHNIQUE: Computed tomography (CT) of the cervical spine was performed without intravenous contrast. Automated exposure control and iterative reconstruction technique were employed. The dose-length pro duct was 594.02 mGy-cm. COMPARISON: None FINDINGS: Bone alignment is normal. Vertebral body heights are normal. There is mildly decreased disc height at C4-C5 and C5-C6. The following disc levels are specifically discussed: C2-C3: There is no uncovertebral joint osteoarthritis. There is no facet joint osteoarthritis. There is no neural foraminal stenosis. There is no central canal stenosis. C3-C4: There is mild left uncovertebral joint osteoarthritis. There is mild left facet joint osteoart hritis. There is mild left neural foraminal stenosis. There is no central canal stenosis. C4-C5: There is no uncovertebral joint osteoarthritis. There is no facet joint osteoarthritis. There is no neural foraminal stenosis. There is no central canal stenosis. C5-C6: There is mild bilateral uncovertebral joint osteoarthritis. There is no facet joint osteoarthr itis. There is no neural foraminal stenosis. There is no central canal stenosis. C6-C7: There is no uncovertebral joint osteoarthritis. There is no facet joint osteoarthritis. There is no neural foraminal stenosis. There is no central canal stenosis. C7-T1: There is no uncovertebral joint osteoarthritis. There is mild bilateral facet joint osteoarthr itis. There is no neural foraminal stenosis. There is no central canal stenosis. IMPRESSION: 1. No fracture. 2. Mild cervical spondylosis. Reviewed, dictated and finalized at location A. PORTER
--- NOTE | ~2022-02-11 | XR_ITS ---
EXAMINATION: XR wrist RT min 3V DATE: 02/11/2022 10:00 INDICATION: Right wrist pain. Fall. TECHNIQUE: 3 views of right wrist were obtained. COMPARISON: None. FINDINGS: Bone alignment is normal. No fracture. There is mild osteoarthritis of first carpometacarpa l joint. IMPRESSION: 1. Mild osteoarthritis of first carpometacarpal joint. Reviewed, dictated and finalized at location A. OR ROOM WORKER
[2022-02-11 08:50] VITALS: BP 138/83; PULSE 88; RESP 17; TEMP 36.4; O2SAT 100
--- NOTE | 2022-02-11 09:37 | ED.FALL ---
HPI - Fall General Chief Complaint: Fall Stated Complaint: fall, head injury Time Seen by Provider: 02/11/22 08:56 Source: patient and family Mode of arrival: ambulatory Limitations: clinical condition History of Present Illness HPI Narrative: Patient is a 21-year-old female with past medical history of developmental delay, cerebral palsy, who presents the ED with report of a fall. Patient reports she slipped on water at school and fell, hitting her head against the ground. She sustained a small laceration to her left medial eyebrow, which was bandaged with Steri-Strips at the school. Patient did not lose consciousness. She denies any prodromal symptoms. She complains of pain to her head and right wrist. Denies neck pain, abdominal pain, nausea, vomiting, dizziness, vision changes. Related Data Home Medications Medication Instructions Recorded Confirmed Lactobacillus 1 cap PO DAILY 07/29/21 01/11/22 acidophilus-Bifidobac.animalis 2.5 billion cell capsule (Daily Probiotic) lysine 1,000 mg tablet 1,000 mg PO DAILY 07/29/21 01/11/22 multivit with minerals-iron 18 1 tablet PO DAILY 07/29/21 01/11/22 mg-folic ac 400 mcg-vit K 25 mcg tablet (Adults Multivitamin) norethindrone acetate 5 mg tablet 5 mg PO DAILY 07/29/21 01/11/22 oxcarbazepine 300 mg tablet 300 mg PO BID 07/29/21 01/11/22 sertraline 100 mg tablet 100 mg PO DAILY 07/29/21 01/11/22 vitamin B complex 1 tablet PO DAILY 07/29/21 01/11/22 zonisamide 100 mg capsule 100 mg PO BID 07/29/21 01/11/22 Allergies Allergy/AdvReac Type Severity Reaction Status Date / Time corn Allergy Diarrhea Verified 02/11/22 08:58 orange juice Allergy Diarrhea Verified 02/11/22 08:58 Review of Systems Review of Systems: CONSTITUTIONAL: Denies fever, chills, or sweats. EYES: Denies visual changes. CARDIOVASCULAR: Denies chest pain. RESPIRATORY: Denies dyspnea. GASTROINTESTINAL: Denies abdominal pain, nausea, vomiting. MUSCULOSKELETAL: Reports right wrist pain. Denies neck pain. SKIN: Reports laceration to left eyebrow. NEUROLOGIC: Reports head injury, headache. Denies LOC, dizziness, numbness, or weakness. All systems reviewed & are unremarkable except as noted in HPI and below PMFSH Past Medical History Medical History Abnormality of gait Developmental delay, moderate History of frequent ear infections Intellectual disability Obesity, morbid, BMI 40.0-49.9 OCD (obsessive compulsive disorder) Schizencephaly Seizures Spastic hemiplegic cerebral palsy Surgical History Surgical History History of bilateral femoral derotational osteotomy Due to femoral anteversion Family History Family History Father Diabetes mellitus Congestive heart failure Heart attack Father COVID Father , covid with respiratory failure No problems noted. Social History Social History Social History: The patient lives at home with her mother . She is a senior in high school where she attends modified classes due to her intellectual disability. She ambulates with a cane at home but uses a wheelchair at school. She is the youngest of 3 children. Primary care physician: Dr. Alla Polo ([facility] [place], [place]) Smoking packs per day: 0 Smoking cigarettes per day: 0.0 Smoking status: Never smoker Second hand tobacco smoke exposure: No Alcohol intake: never Substance use: never Substance use type: does not use Gender identity (if verbalized by the patient): Female Sexual Orientation (if Verbalized by the Patient): Straight or Heterosexual Spiritual care concerns: No Agree to blood products: Yes Exam Narrative: GENERAL: Well appearing, morbidly obese, non-toxic, in no acute dist
== END 2022-02-11 12:43 | disposition home or self-care (01) ==
PROVIDERS: Emergency Provider Physician Assistant; PCP Family Medicine
DX: S01.112A Laceration without foreign body of left eyelid and periocular area, initial encounter (principal); H61.23 Impacted cerumen, bilateral; S09.90XA Unspecified injury of head, initial encounter; G80.2 Spastic hemiplegic cerebral palsy; Q04.6 Congenital cerebral cysts; F79 Unspecified intellectual disabilities; F42.9 Obsessive-compulsive disorder, unspecified; E66.01 Morbid (severe) obesity due to excess calories; M18.9 Osteoarthritis of first carpometacarpal joint, unspecified; M47.812 Spondylosis without myelopathy or radiculopathy, cervical region
CPT/HCPCS: 69209; 70450; 72125; 73110; 99284; A9270

== ENCOUNTER 2022-03-12 14:40 | Emergency (ER) | payer MEDICARE, BC, SELFPAY ==
--- NOTE | 2022-03-12 14:48 | ED.URI ---
HPI - URI/Sore Throat General Chief Complaint: Upper Respiratory Infection Stated Complaint: Sore Throat,Cough Time Seen by Provider: 03/12/22 15:00 Source: patient, RN notes reviewed and old records reviewed Mode of arrival: ambulatory Limitations: no limitations History of Present Illness HPI Narrative: 21-year-old female presents to the [facility] with complaints of sore throat and cough since Tuesday, 2 days ago. Mom reports giving Mucinex. Unknown fevers, unable to take temperature MD elicited complaint: cough and sore throat Onset (ago): day(s) (2) Related Data Home Medications Medication Instructions Recorded Confirmed Lactobacillus 1 cap PO DAILY 07/29/21 03/12/22 acidophilus-Bifidobac.animalis 2.5 billion cell capsule (Daily Probiotic) lysine 1,000 mg tablet 1,000 mg PO DAILY 07/29/21 03/12/22 multivit with minerals-iron 18 1 tablet PO DAILY 07/29/21 03/12/22 mg-folic ac 400 mcg-vit K 25 mcg tablet (Adults Multivitamin) norethindrone acetate 5 mg tablet 5 mg PO DAILY 07/29/21 03/12/22 oxcarbazepine 300 mg tablet 300 mg PO BID 07/29/21 03/12/22 sertraline 100 mg tablet 100 mg PO DAILY 07/29/21 03/12/22 vitamin B complex 1 tablet PO DAILY 07/29/21 03/12/22 zonisamide 100 mg capsule 100 mg PO BID 07/29/21 03/12/22 Allergies Allergy/AdvReac Type Severity Reaction Status Date / Time corn Allergy Diarrhea Verified 03/12/22 15:11 orange juice Allergy Diarrhea Verified 03/12/22 15:11 Review of Systems Review of Systems: All systems reviewed & are unremarkable except as noted in HPI and below Constitutional: Constitutional: Reports no additional constitutional complaints Eyes: Eyes: Reports no additional eye complaints ENT: Reports as per HPI and Reports sore throat Cardiovascular: Cardiovascular: Reports no additional cardiovascular complaints, Denies chest pain and Denies dyspnea Respiratory: Respiratory: Reports no additional respiratory complaints, Denies chest congestion, Denies cough and Denies dyspnea Gastrointestinal: Gastrointestinal: Reports no additional gastrointestinal complaints, Denies abdominal pain, Denies nausea and Denies vomiting Musculoskeletal: Musculoskeletal: Reports no additional musculoskeletal complaints Integumentary/Breasts: Skin/Breast: Reports system reviewed and no additional complaints, except as docu Neurologic: Reports system reviewed and no additional complaints, except as documented Psychiatric: Psychiatric: Reports no additional psychiatric complaints Allergic/Immunologic: Allergic/Immunologic: Reports no additional allergic/immunologic complaints PMFSH Past Medical History Medical History Abnormality of gait Developmental delay, moderate History of frequent ear infections Intellectual disability Obesity, morbid, BMI 40.0-49.9 OCD (obsessive compulsive disorder) Schizencephaly Seizures Spastic hemiplegic cerebral palsy Surgical History Surgical History History of bilateral femoral derotational osteotomy Due to femoral anteversion Family History Family History Father Diabetes mellitus Congestive heart failure Heart attack Father COVID Father , covid with respiratory failure No problems noted. Social History Social History Social History: The patient lives at home with her mother . She is a senior in high school where she attends modified classes due to her intellectual disability. She ambulates with a cane at home but uses a wheelchair at school. She is the youngest of 3 children. Primary care physician: Dr. Alla Polo ([facility] [place], [place]) Smoking packs per day: 0 Smoking cigarettes per day: 0.0 Smoking status: Never smoker Second hand tobacco smoke ex
[2022-03-12 15:03] VITALS: BP 141/77; PULSE 119; RESP 18; TEMP 36.7; O2SAT 98
== END 2022-03-12 15:40 | disposition home or self-care (01) ==
PROVIDERS: Emergency Provider Nurse Practitioner; PCP Family Medicine
DX: J06.9 Acute upper respiratory infection, unspecified (principal); E66.01 Morbid (severe) obesity due to excess calories; Z68.41 Body mass index [BMI] 40.0-44.9, adult; G40.909 Epilepsy, unspecified, not intractable, without status epilepticus; G80.2 Spastic hemiplegic cerebral palsy; Q04.6 Congenital cerebral cysts
CPT/HCPCS: 87081; 87880; 99213; G0463

== ENCOUNTER 2022-04-10 07:30 | Outpatient (CLI) | payer MEDICARE, BC, SELFPAY ==
--- NOTE | 2022-05-03 10:49 | WPDSLEEPSTUD ---
Sleep Study Date of Study: 04/09/22 Ordering Provider: Deya Pat MD Interpreting Physician: Deya Pat MD Sleep Study Type: Split Polysomnogram Height: 1.42 m Weight: 94.347 kg Body Mass Index: 46.6 Neck Circumference (inches): 18 [place]: 13 Reason for Sleep Study Hypersomnolence Sleep History Lidya Wong is a 21-year-old female with complaints of excessive daytime sleepiness. Her mother helps provide the history due to the patient having cognitive limitations. The patient psychiatrist recommended sleep evaluation because the patient is tired and sleepy all the time. She occasionally awakens from sleep feeling short of breath. She frequently awakens at night with heartburn, belching or coughing. She frequently snores but it is not loud enough that it causes others to complain. She frequently has trouble sleeping with a cold. She does not wake up gasping for breath at night or have breathing problems at night observed by others. She rarely sweats excessively at night. She does not notice her heart pounding or beating irregularly at night. She frequently falls asleep during the day however does not fall asleep involuntarily. She does not drive a car so falling asleep while driving is not an issue. She does not have loss of muscle tone with strong emotion. She rarely has daytime difficulties due to excessive sleepiness. She rarely feels paralyzed on waking or falling asleep. She does not have vivid dreamlike scenes on waking or falling asleep she does not feel afraid to go to sleep. She frequently feels sad, depressed and anxious. She frequently has muscular tension and frequently notices parts of her body jerking. She occasionally kicks at night. She frequently has crawling aching feelings in her legs and leg pain during the night. She occasionally has morning jaw pain. She constantly grinds her teeth during sleep. She frequently is bothered by pain during the day and awakened by pain at night. She frequently wakes up feeling stiff in the morning with sore achy muscles and pain in the neck and spine. Normal bedtime is between 8:30 p.m. and 9:00 p.m. falling asleep within 1/2 hour. She may not wake up during the night but may wake up 1 or 2 times for unclear reasons. She wakes the morning at 6:00 a.m.. On weekends, her bedtime is 11:00 p.m. and she wakes at 10:00 a.m.. She does not have much of a social life. Her social connections are mainly through her school. She works 2 hours a day on Mondays through through [employer] program. She does not generally take naps. A short nap lasting 10 or 15 minutes may be refreshing. Most of the time she feels adequate on waking. She feels better in the evening compared to other times of day. Habits: Never smoked tobacco. No caffeine, alcohol or recreational substances. [facility] Past Medical History Medical History Abnormality of gait Developmental delay, moderate History of frequent ear infections Intellectual disability Obesity, morbid, BMI 40.0-49.9 OCD (obsessive compulsive disorder) Schizencephaly Seizures Spastic hemiplegic cerebral palsy Surgical History Surgical History History of bilateral femoral derotational osteotomy Due to femoral anteversion Family History Family History Father Diabetes mellitus Congestive heart failure Heart attack Father COVID Father , covid with respiratory failure No problems noted. Social History Social History Social History: The patient lives at home with her mother . She is a senior in high school where she attends modified classes due to her intellectual disability. She ambulates with a cane at home but uses a wheelchair at school. She is the youngest
[2022-05-03 12:27] VITALS: BMI 46.6
== END 2022-04-10 13:27 | disposition home or self-care (01) ==
LOC: ANHCSM 05-05 08:23
PROVIDERS: PCP Family Medicine; Visit Provider Internal Medicine Critical Care Medicine
DX: G47.19 Other hypersomnia (principal); G47.33 Obstructive sleep apnea (adult) (pediatric)
CPT/HCPCS: 95811

== ENCOUNTER 2022-04-22 09:54 | Emergency (ER) | payer MEDICARE, BC, SELFPAY ==
[2022-04-22 10:15] VITALS: BP 127/76; PULSE 103; RESP 18; TEMP 37; O2SAT 97
--- NOTE | 2022-04-22 11:07 | ED.URI ---
HPI - URI/Sore Throat General Chief Complaint: Upper Respiratory Infection Stated Complaint: sorethroat Time Seen by Provider: 04/22/22 11:08 Source: patient, family, RN notes reviewed and old records reviewed Mode of arrival: ambulatory Limitations: no limitations History of Present Illness HPI Narrative: 21-year-old female accompanied by mother presents to [facility] with mother reporting daughter has had severe sore throat and was crying this morning stating right side of throat hurts. Mother reports that patient has had some sinu drainage and sniffles this past week, no cough or fevers noted. She reports that she has given patient some Tylenol for her complaints. MD elicited complaint: sore throat, rhinorrhea and nasal congestion Onset (ago): day(s) (sniffles and sinus drainage for past week, sore throat today) Pain scale (0-10): 5 Description of mucous: clear Treatments prior to arrival: acetaminophen Related Data Home Medications Medication Instructions Recorded Confirmed norethindrone acetate 5 mg tablet 5 mg PO DAILY 07/29/21 04/22/22 oxcarbazepine 300 mg tablet 300 mg PO BID 07/29/21 04/22/22 zonisamide 100 mg capsule 100 mg PO BID 07/29/21 04/22/22 lansoprazole 15 mg delayed 15 mg PO DAILY 04/22/22 04/22/22 release,disintegrating tablet Allergies Allergy/AdvReac Type Severity Reaction Status Date / Time corn Allergy Diarrhea Verified 04/22/22 10:24 orange juice Allergy Diarrhea Verified 04/22/22 10:24 Review of Systems Review of Systems: CONSTITUTIONAL: Denies malaise, chills, sweats, or fever. EYES: Denies visual changes, redness, or discharge. ENT: Reports rhinorrhea, congestion, sinus pain,no otalgia ,positive for sore throat. CARDIOVASCULAR: Denies chest pain, palpitations, or edema. RESPIRATORY: Reports no cough.? Denies dyspnea. GASTROINTESTINAL: Denies abdominal pain, nausea, vomiting, diarrhea SKIN: Denies rash or itching. MUSCULOSKELETAL: Denies myalgia. NEUROLOGIC: Denies headache. All systems reviewed & are unremarkable except as noted in HPI and below PMFSH Past Medical History Medical History Abnormality of gait Developmental delay, moderate History of frequent ear infections Intellectual disability Obesity, morbid, BMI 40.0-49.9 OCD (obsessive compulsive disorder) Schizencephaly Seizures Spastic hemiplegic cerebral palsy Surgical History Surgical History History of bilateral femoral derotational osteotomy Due to femoral anteversion Family History Family History Father Diabetes mellitus Congestive heart failure Heart attack Father COVID Father , covid with respiratory failure No problems noted. Social History Social History Social History: The patient lives at home with her mother . She is a senior in high school where she attends modified classes due to her intellectual disability. She ambulates with a cane at home but uses a wheelchair at school. She is the youngest of 3 children. Primary care physician: Dr. Alla Polo ([facility] [place], [place]) Smoking packs per day: 0 Smoking cigarettes per day: 0.0 Smoking status: Never smoker Second hand tobacco smoke exposure: No Alcohol intake: never Substance use: never Substance use type: does not use Living arrangements: with family Occupation/Education: unemployed Gender identity (if verbalized by the patient): Female Sexual Orientation (if Verbalized by the Patient): Straight or Heterosexual Spiritual care concerns: No Agree to blood products: Yes Comments At time of signature, agree with nursing past medical, surgical, social and family history. There is no relevant family history pertinent to the presenting comp
== END 2022-04-22 11:31 | disposition home or self-care (01) ==
PROVIDERS: Emergency Provider Registered Nurse; PCP Family Medicine
DX: J03.90 Acute tonsillitis, unspecified (principal); F81.9 Developmental disorder of scholastic skills, unspecified; E66.01 Morbid (severe) obesity due to excess calories; Z68.41 Body mass index [BMI] 40.0-44.9, adult; Q04.6 Congenital cerebral cysts; G80.2 Spastic hemiplegic cerebral palsy
CPT/HCPCS: 87081; 87880; 99213; G0463

== ENCOUNTER 2022-07-10 14:35 | Emergency (ER) | payer MEDICARE, BC, SELFPAY ==
[2022-07-10 14:50] VITALS: BP 122/86; PULSE 64; RESP 20; TEMP 36.4; O2SAT 98
--- NOTE | 2022-07-10 15:36 | ED.GENADULT ---
HPI - General Adult General Chief complaint: Ear Stated complaint: . Time Seen by Provider: 07/10/22 15:36 Source: patient Mode of arrival: ambulatory Limitations: no limitations History of Present Illness HPI narrative: 21-year-old female patient presents to the [facility] with complaints of bilateral ear pain but more so in the left ear than the right. Mother states that she has been having pain for the past couple of days. Denies fevers, body aches or chills. Related Data Home Medications Medication Instructions Recorded Confirmed norethindrone acetate 5 mg tablet 5 mg PO DAILY 07/29/21 07/10/22 oxcarbazepine 300 mg tablet 300 mg PO BID 07/29/21 07/10/22 zonisamide 100 mg capsule 100 mg PO BID 07/29/21 07/10/22 lansoprazole 15 mg delayed 15 mg PO DAILY 04/22/22 07/10/22 release,disintegrating tablet Allergies Allergy/AdvReac Type Severity Reaction Status Date / Time corn Allergy Diarrhea Verified 07/10/22 14:48 orange juice Allergy Diarrhea Verified 07/10/22 14:48 Review of Systems Review of Systems: CONSTITUTIONAL: Denies fever, chills, or sweats. EYES: Denies visual changes, redness, or discharge. ENT: Denies rhinorrhea, congestion, sore throat, Positive bilateral otalgia. CARDIOVASCULAR: Denies chest pain, palpitations, or edema. RESPIRATORY: Denies cough or dyspnea. GASTROINTESTINAL: Denies abdominal pain, nausea, vomiting, or diarrhea. GENITOURINARY: Denies dysuria or hematuria. SKIN: Denies rash or itching. MUSCULOSKELETAL: Denies back pain, joint pain, or myalgia. NEUROLOGIC: Denies headache, numbness, or weakness. PSYCHIATRIC: Denies anxiety or depression. [facility] Past Medical History Medical History Abnormality of gait Developmental delay, moderate History of frequent ear infections Intellectual disability Obesity, morbid, BMI 40.0-49.9 OCD (obsessive compulsive disorder) Schizencephaly Seizures Spastic hemiplegic cerebral palsy Surgical History Surgical History History of bilateral femoral derotational osteotomy Due to femoral anteversion Family History Family History Father Diabetes mellitus Congestive heart failure Heart attack Father COVID Father , covid with respiratory failure No problems noted. Social History Social History Social History: The patient lives at home with her mother . She is a senior in high school where she attends modified classes due to her intellectual disability. She ambulates with a cane at home but uses a wheelchair at school. She is the youngest of 3 children. Primary care physician: Dr. Alla Polo ([facility] [place], [place]) Smoking packs per day: 0 Smoking cigarettes per day: 0.0 Smoking status: Never smoker Second hand tobacco smoke exposure: No Alcohol intake: never Substance use: never Substance use type: does not use Living arrangements: with family Occupation/Education: unemployed Gender identity (if verbalized by the patient): Female Sexual Orientation (if Verbalized by the Patient): Straight or Heterosexual Spiritual care concerns: No Agree to blood products: Yes Comments At the time of my signature I agree with nursing past medical history, surgical, social, and family history. There is no relevant family history pertinent to the presenting complaint. Exam Narrative: GENERAL: Well-appearing, well-nourished, and in no acute distress. HEAD: Normocephalic, atraumatic. EYES: PERRLA and EOMI. ENT: Nares clear, no rhinorrhea or epistaxis. Mucous membranes moist. patient has yellow pus noted to the canal of the left ear. No erythema or infection noted to the right ear but there is some fluid noted behind the right ear. NECK: Supple. No lympha
== END 2022-07-10 15:48 | disposition home or self-care (01) ==
PROVIDERS: Emergency Provider Nurse Practitioner Family; PCP Family Medicine
DX: H60.332 Swimmer's ear, left ear (principal)
CPT/HCPCS: 99213; G0463

== ENCOUNTER 2024-10-15 18:25 | Emergency (ER) | payer MEDICARE, BC, SELFPAY ==
--- NOTE | ~2024-10-15 | XR_ITS ---
Supine and upright views of the abdomen Clinical history: Abdominal pain Findings: Bowel gas pattern is nonspecific. Moderate stool burden. No evidence for obstruction or yenifer e air. No abnormal mass lesion or calcification is seen. Osseous structures are intact. Impression: Moderate stool burden. Reviewed, dictated and finalized at [facility]. Impression: Moderate stool burden.
--- OUTSIDE RECORDS SUMMARY | 2024-10-15 18:27 | XMS_ITS | Continuity of Care Document ---
Author Name [facility] Organization [facility] Care Team Providers Care [place]seuse Name Role Phone [facility] Unavailable Unavailable Allergies, Adverse Reactions, Alerts Combined list of allergies from Department of Defense and Veterans Affairs facilities. It does not include entries that were removed or entered in error. Substance Category Reaction Severity Reaction type Status Date Reported Comments Source No Known Allergies Drug allergy (disorder) active 06/11/2010 [facility] Social History Combined list of available smoking, tobacco, and other social history from Department of Defense and Veterans Affairs facilities. Social History Type Response Date Comment Sour e This section is an empty social history section. [facility]
--- OUTSIDE RECORDS SUMMARY | 2024-10-15 18:27 | XMS_ITS | Continuity of Care Document ---
Author Organization [facility] Address [place], [place] [address] Care Team Providers Care Glass Etcher Name Role Phone Leana Pickens MD Unavailable Unavailable Allergies, Adverse Reactions, Alerts Substance Reaction Status Criticality No Known Allergies Active No Inform ation Medications Medication Instructions Dosage Effective Dates (start - stop) Status Comments RITALIN (unknown strength) Not Available - Active NORETHINDRONE AC (LUPANETA) (unknown strength) Not Available - Active OXCARBAZEPINE (unknown strength) Not Available - Active Procedures Procedure Date OFFICE/OUTPATIENT VISIT NEW OFFICE/OUTPATIENT VISIT EST OFFICE/OUTPATIENT VISIT EST Advance Directives Directive Yes / No Effective Date File Name No Information Encounters Encounter Description Practice Location Reason(s) For Visit Diagnoses Date Provider Providers Copied on Encounter [facility], [place], [address], [facility] Spasticity secondary to CP (chief complaint) Spastic hemiplegic cerebral palsyAmbulato ry dysfunctionSe izure disorderSchi encephalyBody mass index [BMI]40.0-44. 9, adult 5 Celio Dueñas. [address], [place], [place], [id number] . tel: [phone] [facility], [place], [address], [facility] Spasticity secondary to CP (chief complaint) Spastic hemiplegic cerebral palsyAmbulato ry dysfunctionSe izure disorderSchi encephalyBody mass index [BMI]40.0-44. 9, adult Jun- 5 Celio Dueñas. [address], [place], [place], [id number] . tel: [phone] [facility], [place], [address], [facility] Spasticity secondary to CP (chief complaint) Spastic hemiplegic cerebral palsyAmbulato ry dysfunctionSe izure disorderSchiz encephalyBody mass index [BMI]40.0-44. 9, adult 4 Celio Dueñas. [address], [place], [place], [id number] . tel: [phone] [facility], [place], [address], [facility] Spasticity secondary to CP (chief complaint) Spastic hemiplegic cerebral palsyAmbulato ry dysfunctionSe izure disorderSchiz encephalyBody mass index [BMI]40.0-44. 9, adult 4 Celio Dueñas. [address], [place], [place], [id number] . tel: [phone] [facility], [place], [address], [facility] Spasticity secondary to CP (chief complaint) Spastic hemiplegic cerebral palsyAmbulato ry dysfunctionSe izure disorderSchiz encephalyBody mass index [BMI]40.0-44. 9, adult 4 Celio Dueñas. [address], [place], [place], [id number] . tel: [phone] [facility], [place], [address], [facility] Spasticity secondary to CP (chief complaint) Body mass index [BMI]40.0-44. 9, adultSpastic hemiplegic cerebral palsyAmbulato ry dysfunctionSe izure disorderSchiz encephaly 4 Celio Dueñas. [address], [place], [place], [id number] . tel: [phone] [facility], [place], [address], [facility] Spasticity secondary to CP (chief complaint) Body mass index [BMI]40.0-44. 9, adultSpastic hemiplegic cerebral palsyAmbulato ry dysfunctionSe izure disorderSchiz encephaly 3 Celio Dueñas. [address], [place], [place], [id number] . tel: [phone] [facility], [place], [address], [facility] Spasticity secondary to CP (chief complaint) Body mass index [BMI]40.0-44. 9, adultSpastic hemiplegic cerebral palsyAmbulato ry dysfunctionSe izure disorderSchiz encephaly 3 Celio Dueñas. [address], [place], [place], [id number] . tel: [phone] [facility], [place], [address], [facility] Spasticity (chief complaint) Body mass index [BMI]40.0-44. 9, adultSpastic hemiplegic cerebral palsyAmbulato ry dysfunctionSc hizencephalyS eizure disorder 3 Celio Dueñas. [address], [place], [place], [id number] . tel: [phone] [facility], [place], [address], [facility] Spasticity. (chief complaint) Body mass index [BMI]40.0-44. 9, adultSpastic hemiplegic cerebral palsyRight sided weaknessAmbul atory dysfunctionSe izure disorderSchiz encephaly 3 Celio Dueñas. [address], [place], [place], [id number] . tel: [phone] [facility], [place], [address], [facility] Spasticity. (chief complaint) Body mass index [BMI]40.0-44. 9, adultSpastic hemiplegic cerebral palsySeizure disorderSchiz encephalyAmbu latory dysfunctionRi ght sided weakness 2 Celio Dueñas. [address], [place], [place], [id number] . tel: [phone] OFFICE/OUTPA TIENT VISIT NEW [facility], [place], [address], [facility] Spasticity (chief complaint) Right sided weaknessSpast ic hemiplegic cerebral palsyAmbulato ry dysfunctionSe izure disorderSchiz encephaly Sep-2 0-202 2 Celio Dueñas. [address], [place], [place], [id number] . tel: [phone] [facility], [address] [place] [address], [address], [place] tel:[phone] [facility] Primary osteoarthriti s of right hipSpastic triplegia, congenital Dec- 7 Andi Palacios. [address], [place], [address]. tel: [phone] OFFICE/OUTPA TIENT VISIT [facility], [address] [place] [address], [address], [place] tel:[phone] [facility] Spastic triplegia, congenital Sep-2 0- 7 Andi Palacios. [address], [place], [address]. tel: [phone] OFFICE/OUTPA TIENT VISIT [facility], [address] [place] [address], [address], [place] tel:[phone] [facility] Spastic triplegia, congenital 7 Andi Palacios. [address], [place], [address]. tel: [phone] [facility], [address] [place] [address], [address], [place] tel:[phone] [facility] Spastic triplegia, congenital Jan- 6-201 6 Andi Palacios. [address], [place], [address]. tel: [phone] [facility], [address] [place] [address], [address], [place] tel:[phone] [facility] Primary osteoarthriti s of right hip Apr- 3-201 6 Andi Palacios. [address], [place], [address]. tel: [phone] [facility], [address] [place] [address], [place], [address], [place] tel:[phone] [facility] Strain of hip flexor, left, initial encounter 6 Andi Palacios. [address], [place], [address]. tel: [phone] [facility], [address] [place] [address], [place], [address], [place] tel:[phone] [facility] Triplegia 5 Andi Palacios. [address], [place], [address]. tel: [phone] [facility], [address] [place] [address], [address], [place] tel:[phone] [facility] Infantile cerebral palsy 5 Andi Palacios. [address], [place], [address]. tel: [phone] [facility], [address] [place] [address], [address], [place] tel:[phone] [facility] Lumbago 5 Andi Palacios. [address], [place], [address]. tel: [phone] [facility], [address] [place] [address], [address], [place] tel:[phone] [facility] Infantile cerebral palsy 4 Andi Palacios. [address], [place], [address]. tel: [phone] Family History Family Member Type Diagnosis Age At Onset Father Problem Myocardial infarction Mother Problem Depression Mother Problem Osteoarthritis Mother Problem Hypertension Father Problem Depression Father Problem Hypertension Mother Problem Diabetes mellitus Father Problem Diabetes mellitus Payers Payer name Insurance type Covered republican ID Authorstevea abad(s) Medicare E2 OT [id number] [facility] E2 OT [id number] Social History Type Description Quantity Date Captured Comments Alcohol Use Details Unknown Caffeine Use Details Unknown Tobacco Use Status Current non-smoker Smoking Status Never smoker Non-Smoking Tobacco Use Details : No Details Available : No Details Available Sex Female Vital Signs Date / Time: Height Weight BMI Pulse Rate Blood Pressure Temperature Respiratory Rate Body Surface Area Head Circumference Head Circ. Percentile Wt./Neo. Percentile BMI percentile Pulse Ox Inhaled Ox 12:51 PM 59.00 in 92.079 kg (203.00 lbs) 41.0 0 kg/m eter (2) 68 /min 127/72 mm[Hg] 16 /min Chief Complaint And Reason For Visit From encounter dated '10/12/2024 13:00'. 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 Description: Lidya ( for [place]) is being seen in our office today, accompanied by her by her oldest sister, for a previously schedule appointment to receive botulinum toxin injections. They tells me that her mother, Tisha, stayed in the car with her sister's baby. She is a very pleasant 23 year old female referred to us by Dr. Ann Marie Drake for transition of care to an adult rehabilitation physician. The patient has spasticity secondary to cerebral palsy. The spasticity causes discomfort. It interferes with her ability to assists with ADLs and with mobility. Lidya has undergone therapy and has been on oral antispasticity medications without acceptable reduction in the focal spasticity. She has received botulinum toxin injections with adequate results. Since we've seen Lidya last, she has been well. She tells me that she is looking forward to being injected. 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 She was very proud to tell me that she won2 gold medals this summer. She denies any falls or hospital visits. Reason For Referral Reason For Referral No Information Plan Of Treatment Date Type Action Status Referral Ordered: RADEX PELVIS 1/2 VIEWS ordered Referral Ordered: X-RAY EXAM ENTIRE SPI 1 VW ordered Referral Ordered: RADEX KNE 3 VIEWS LT ordered Referral Ordered: X-RAY EXAM HIP UNI W PELVIS 2-3 VIEWS RT ordered Referral Ordered: X-RAY EXAM HIP UNI W PELVIS 2-3 VIEWS ordered Referral Ordered: RADEX SPI LUMBOSAC MINIMUM 4 VIEWS ordered Referral Ordered: RADEX KNE 3 VIEWS Bilateral ordered Appointment Lidya Wong Scheduled History Of Present Illness Encounter Date Complaint History Of Prese nt Illness Spasticity secondary to CP Danielle avila ( for dove) is being seen in our office today, accompanied by her by her oldest sister, for a previously schedule appointment to receive botulinum toxin injections. They tells me that her mother, Tisha, stayed in the car with her sister's baby. She is a very pleasant 23 year old female referred to us by Dr. Ann Marie Drake for transition of care to an adult rehabilitation physician. The patient has spasticity secondary to cerebral palsy. The spasticity causes discomfort. It interferes with her ability to assists with ADLs and with mobility. Lidya has undergone therapy and has been on oral antispasticity medications without acceptable reduction in the focal spasticity. She has received botulinum toxin injections with adequate results. Since we've seen Lidya last, she has been well. She tells me that she is looking forward to being injected. 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 She was very proud to tell me that she won 2 gold medals this summer. She denies any falls or hospital visits. Spasticity secondary to CP Danielle avila ( for dove) is being seen in our office today, accompanied by her mother, Tisha, and by her oldest sister, for a previously schedule appointment to receive botulinum toxin injections. She is a very pleasant 23 year old female referred to us by Dr. Ann Marie Drake for transition of care to an adult rehabilitation physician. The patient has spasticity secondary to cerebral palsy. The spasticity causes discomfort. It interferes with her ability to assists with ADLs and with mobility. Lidya has undergone therapy and has been on oral antispasticity medications without acceptable reduction in the focal spasticity. She has received botulinum toxin injections with adequate results. Since we've seen Lidya last, she has been well. She tells me that she is looking forward to being injected. Her mom says that she can tell when the effects of the botulinum toxin injections have worn off, as Lidya starts rubbing her right arm and leg. She has been able to participate in special olympic sports, which she thoroughly enjoys. She denies any falls or hospital visits. Spasticity secondary to CP Danielle avila ( for dove) is being seen in our office today, accompanied by her mother, Tisha, and by her oldest sister, for a previously schedule appointment to receive botulinum toxin injections. She is a very pleasant 23 year old female referred to us by Dr. Ann Marie Drake for transition of care to an adult rehabilitation physician. The patient has spasticity secondary to cerebral palsy. The spasticity causes discomfort. It interferes with her ability to assists with ADLs and with mobility. Lidya has undergone therapy and has been on oral antispasticity medications without acceptable reduction in the focal spasticity. She has received botulinum toxin injections with adequate results. Since we've seen Lidya last, she has been well. She tells me that she is looking forward to being injected. Her mom says that she can tell when the effects of the botulinum toxin injections have worn off, as Lidya starts rubbing her right arm and leg. She denies any falls or hospital visits. Lidya said the last round went great! Spasticity secondary to CP Lingo a ( for dove) is being seen in our office today, accompanied by her mother, Tisha, and by her oldest sister, for a previously schedule appointment to receive botulinum toxin injections. She is a very pleasant 23 year old female referred to us by Dr. Ann Marie Drake for transition of care to an adult rehabilitation physician. The patient has spasticity secondary to cerebral palsy. The spasticity causes discomfort. It interferes with her ability to assists with ADLs and with mobility. Lidya has undergone therapy and has been on oral antispasticity medications without acceptable reduction in the focal spasticity. She has received botulinum toxin injections with adequate results. Since we've seen Lidya last, she's been well. She denies any falls or hospital visits. She's started swimming, olympic bowling and horse therapy! Spasticity secondary to CP Lingo a ( for dove) is being seen in our office today, accompanied by her mother, Tisha, and by her sister, for a previously schedule appointment to receive botulinum toxin injections. She is a very pleasant 22 year old female referred to us by Dr. Ann Marie Drake for transition of care to an adult rehabilitation physician. The patient has spasticity secondary to cerebral palsy. The spasticity causes discomfort. It interferes with her ability to assists with ADLs and with mobility. Lidya has undergone therapy and has been on oral antispasticity medications without acceptable reduction in the focal spasticity. She has received botulinum toxin injections with adequate results. She is looking forward to being injected today. The patient tells me that she exercises regularly and she participates in therapeutic horseback riding once a week (on Tuesday). Spasticity secondary to CP Cheno a ( for dove) is being seen in our office today, accompanied by her mother, Tisha, and by her sister, for a previously schedule appointment to receive botulinum toxin injections. She is a very pleasant 22 year old female referred to us by Dr. Ann Marie Drake for transition of care to an adult rehabilitation physician. The patient has spasticity secondary to cerebral palsy. The spasticity causes discomfort. It interferes with her ability to assists with ADLs and with mobility. Lidya has undergone therapy and has been on oral antispasticity medications without acceptable reduction in the focal spasticity. She has received botulinum toxin injections with adequate results. She is looking forward to being injected today. The patient tells me that she is done with school. She is looking for a suitable day program through [facility] Her mom says that there may be an opening in the one in [place], which would be acceptable in terms of distance from their home in [place], [place]. Spasticity secondary to CP Cheno a ( for dove) is being seen in our office today, accompanied by her mother, Tisha, for a previously schedule appointment to receive botulinum toxin injections. She is a very pleasant 22 year old female referred to us by Dr. Ann Marie Drake for transition of care to an adult rehabilitation physician. The patient has spasticity secondary to cerebral palsy. The spasticity causes discomfort. It interferes with her ability to assists with ADLs and with mobility. Lidya has undergone therapy and has been on oral antispasticity medications without acceptable reduction in the focal spasticity. She has received botulinum toxin injections with adequate results. She is looking forward to being injected today. Spasticity secondary to CP Danielle avila ( for sean) is being seen in our office today, accompanied by her mother, Tisha, for a previously schedule appointment to receive botulinum toxin injections. She is a very pleasant 22 year old female referred to us by Dr. Ann Marie Drake for transition of care to an adult rehabilitation physician. The patient has spasticity secondary to cerebral palsy. The spasticity causes discomfort. It interferes with her ability to assists with ADLs and with mobility. Lidya has undergone therapy and has been on oral antispasticity medications without acceptable reduction in the focal spasticity. She has received botulinum toxin injections with adequate results. She is looking forward to being injected today. Spasticity Lidya ([place] for dove) is being seen in our office today, accompanied by her mother, Tisha, for a previously schedule appointment to receive botulinum toxin injections. She is a very pleasant 21 year old female referred to us by Dr. Ann Marie Drake for transition of care to an adult rehabilitation physician. The patient has spasticity secondary to cerebral palsy. The spasticity causes discomfort. It interferes with her ability to assists with ADLs and with mobility. Lidya has undergone therapy and has been on oral antispasticity medications without acceptable reduction in the focal spasticity. She has received botulinum toxin injections with adequate results. She is looking forward to being injected today. She tells me that she has been doing well abdullahi we saw her last. She does admit to having a fall. Her mom tells me that there was a puddle at school and she slipped. Lidya had to go to the hospital to get her skin glued. Spasticity. Lidya ([place] for dove) is being seen in our office today, accompanied by her mother, Tisha, for her first round of botulinum toxin injections. She is a very pleasant 21 year old female referred to us by Dr. Ann Marie Drake for transition of care to an adult rehabilitation physician. Today, Lidya is doing well. She tells me that she is doing physical therapy. She also see's a chiropractor who does acupuncture. She admits to having a fall where she slipped in water and scraped her head. Spasticity. Lidya ([place] estr[place]) is being seen in our office today, accompanied by her mother, Tisha, for her first round of botulinum toxin injections. She is a very pleasant 21 year old female referred to us by Dr. Ann Marie Drake for transition of care to an adult rehabilitation physician. Lidya is doing well. She is looking forward to being injected today. Lidya has had botulinum toxin injections before from Dr. Drake under pediatric care. Spasticity Lidya ([place] estrada) is being seen in our office today, accompanied by her mother, Tisha, for a new patient evaluation. She is a very pleasant 21 year old female referred to us by Dr. Ann Marie Drake for transition of care to an adult rehabilitation physician. 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 Lidya has been receiving botulinum toxin injections from Dr. Ann Marie Drake since 2009. Her mother tells me that initially when she first started seeing Dr. Drake they were doing these injections every 6 months and then eventually decreased to once a year. Lidya and her mother tells me that the botulinum toxin injections provide the patient with a reduction in the focal spasticity. She is hoping to continue to receive these injections in this office. Her mom tells me that Lidya has undergone therapy in the past. Lidya walks with a left forearm crutch for short distances and uses a wheelchair for long distances. Lidya sees a chiropractor for acupuncture. The patient needs assistance for toileting, bathing, dressing, hygiene, meal preparation, laundry and housework and mobility. Lidya is able to attend school. Functional Status Date Functional Assessmen t No Information Instructions Date Instruction Additional Infor normaion Giving encouragement to exercise Related to Body mass index [BMI] 40.0-44.9, adult Giving encouragement to exercise Related to Body mass index [BMI] 40.0-44.9, adult Giving encouragement to exercise Related to Body mass index [BMI] 40.0-44.9, adult Giving encouragement to exercise Related to Body mass index [BMI] 40.0-44.9, adult Giving encouragement to exercise Related to Body mass index [BMI] 40.0-44.9, adult Giving encouragement to exercise Related to Body mass index [BMI] 40.0-44.9, adult Giving encouragement to exercise Related to Body mass index [BMI] 40.0-44.9, adult Assessments Type Assessment Date assessment Spastic hemiplegic cerebral pals y impression Lidya presents with spasticity in the right upper and lower extremities as the result of 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 The spasticity causes discomfort and interferes with ADLs and mobility. The patient has been on oral antispasticity medications and has undergone extensive therapy in the past. She is swimming and doing hippotherapy. She also enjoys track and bowling. She receives botulinum toxin with excellent results. During this visit I injected 200 units of botulinum toxin into the right upper and lower extremities. The patient tolerated the procedure well. Prior to injecting the patient, I went over the risks and benefits of botulinum toxin injections as well as the onset, peak and duration of action. I went over the fact that we recommend receiving these injections every 3 months. The patient's mom will call with any questions or concerns prior to her next appointment assessment Ambulatory dysfunction impression Lidya ambulates wit h a [employer]reet[employer] crutch (which she calls Celia). She has done therapy in [facility] in [place], [place] and worked on balance, core and upper/lower extremity strength, mobility. She is swimming and doing hippotherapy assessment Seizure disorder impression Last seizure > 15 ye ars ago. On zonisamide 100 BID, trileptal 300 BID assessment Schizencephaly impression Stable assessment Body mass index [BMI]40.0-44.9, adult impression Healthy diet and exercise Mental Status Date Cognitive Assessment N/A Patient Care Teams Name Effective Dates (start - stop) Status Members No Information
--- OUTSIDE RECORDS SUMMARY | 2024-10-15 18:27 | XMS_ITS | Clinical Summary ---
Author Organization [facility] [employer] Address [address] [place] [address] Care Team Providers Care Filter Tender Name Role Phone Federica Combs MD Primary Care Provider [phone] Source Comments [facility] [employer],non-owned Affiliates and Associated Physician Practices is amultiple site organization consisting of ambulatory clinics and hospital sitesin [place], [place], [place] and [place]. This disclosure is being madepursuant to the Care Everywhere program and may not contain all information available regarding this patient. Last updated 17.[employer] Allergies No known active allergies Medications * Be aware that medications may not be up to date on this document. Alwaysverify current medications with the patient. OXcarbazepine (TRILEPTAL) 300 MG tablet Take 300 mg by mouth 2 times daily Active zonisamide (ZONEGRAN) 100 MG capsule Take 100 mg by mouth 2 times daily Active sertraline (ZOLOFT) 50 MG tablet Take 75 mg by mouth once daily Active norethindrone (NORLYDA) 0.35 MG tablet Take 1 tablet by mouth once daily Active Active Problems Problem Noted Date Diagnosed Date Cerebral cyst 01/15/2020 Resolved Problems Problem Noted Date Diagnosed Date Resolved Date Ataxia 01/15/2020 01/17/2020 Weakness 01/15/2020 01/17/2020 Head trauma 01/15/2020 01/17/2020 Intractable acute post-traumatic headache 01/15/2020 01/17/2020 Social History Tobacco Use Types Packs/Day Years Used Date Smoking Tobacco: Never Smokeless Tobacco: Never Alcohol Use Standard Drinks/Week Comments Never 0 (1 standard drink = 0.6 oz pur e alcohol) AUDIT-C Answer Date Recorded Q1: How often do you have a drink containing alc ohol? Never 01/15/2020 Average Number of Drinks Not on file 020 Frequency of Binge Drinking Not on file 05/2019 Comments No Sex and Gender Information Value Date Recorded Sex Assigned at Not on file Legal Sex Female 12:57 PM CDT Gender Identity Not on file Sexual Orientation Not on file Last Filed Vital Signs Vital Sign Reading Time Taken Comments Blood Pressure 114/77 04/15/2020 12:09 PM OTR FLATBED DRIVER Pulse 92 04/15/2020 12:09 PM OTR FLATBED DRIVER Temperature 37.1 C (98.7 F) 04/15/2020 12:09 PM OTR FLATBED DRIVER Respiratory Rate 24 04/15/2020 12:09 PM OTR FLATBED DRIVER Oxygen Saturation 96% 01/17/2020 9:20 AM OTR FLATBED DRIVER Inhaled Oxygen Concentration - - Weight 88.7 kg (195 lb 8.8 oz) 04/15/2020 12:09 PM OTR FLATBED DRIVER Height 149.9 cm (4' 11) 01/16/2020 11:53 AM OTR FLATBED DRIVER Body Mass Index 39.5 01/16/2020 11:53 AM OTR FLATBED DRIVER Plan of Treatment Health Maintenance Due Date Last Done Comments HIV SCREENING 10/26/2015 HPV VACCINE (1 - 3-dose series) 10/26/2015 CHLAMYDIA/GONORRHEA SCREENING 2016 MENINGOCOCCAL (Group B) VACCINE SHARED DECISION-MAKING (1 of 2 - Standard) 2016 HEPATITIS C SCREENING 10/21/2018 DTAP/TDAP/TD VACCINES (1 - Tdap) 10/26/2019 HEPATITIS B VACCINE (1 of 3 - 19+ 3-dose series) 10/26/2019 COVID-19 VACCINE (1 - 2023-2 5 season) 2023 DEPRESSION SCREENING 03/14/2024 INFLUENZA VACCINE (#1) 2024 9, 01/14/2018 ZOSTER VACCINE (1 of 2) 2050 HIB VACCINE Aged Out No longer eligi ble based on patient's age to complete this topic MENINGOCOCCAL GROUPS A/C/Y/W VACCINE Aged Out No longer eligible b ased on patient's age to complete this topic PNEUMOCOCCAL VACCINE Aged Out No long er eligible based on patient's age to complete this topic Insurance ANTHEM [facility] Address: [facility] [address] [place] [address] ANTHEM Advance Directives * Full Code (Latest Code Status on File) Date Activated Date Inactivated Comments 01/16/2020 12:55 AM 01/17/2020 3:47 PM Care Teams Filter Tender Relationship Specialty Start Date End Date Federica Combs MD [address] [place] [address] PCP - General Pediatrics 07/04/12
[2024-10-15 19:42] VITALS: BP 145/119; PULSE 113; RESP 16; TEMP 36.8; O2SAT 98
[2024-10-15 22:40] VITALS: BP 129/95; PULSE 102; RESP 20; O2SAT 97
[2024-10-15 22:42] VITALS: BP 129/95; PULSE 102; RESP 21; O2SAT 98
--- NOTE | 2024-10-15 23:40 | ED_ITS ---
HPI - Abdominal Pain General Chief Complaint: Abdominal Pain Stated Complaint: LLQ abd pain Time Seen by Provider: 10/15/24 22:38 Source: patient and family Mode of arrival: ambulatory Limitations: other (Developmental delay/intellectual disability) History of Present Illness HPI narrative: 23-year-old female presents with report of left lower quadrant abdominal pain. Denies any nausea vomiting or diarrhea. Unknown if she had a bowel movement today but she had a bowel movement yesterday and denies any bloody stools. Denies any chills although she states sometimes her feet get cold. No previous colonoscopy and does not follow with a national sales manager though does take omeprazole for history of GERD. Has not take any medications prior to arrival. Her symptoms started at 1:30 p.m.. Mother who is her guardian notes that she had been complaining of pain that was 9 to 11/10 in severity at home, crying out, especially with palpation by mother. In the emergency department she was saying that her pain was 3/10 in severity but well in the emergency department she was noting that that pain radiated towards her back. However she denies any adam flank pain. Patient denies any dysuria. She does note that she had dysuria approximately 1 year ago. No hematuria. Patient does not menstruate as she is on medication for this. Denies any fevers. Related Data Home Medications ?Medication ?Instructions ?Recorded ?Confirmed ?Last Taken ?Type norethindrone acetate 5 mg tablet 5 mg PO DAILY 07/29/21 11/28/23 Unknown History oxcarbazepine 300 mg tablet 300 mg PO BID 07/29/21 11/28/23 Unknown History zonisamide 100 mg capsule 100 mg PO BID 07/29/21 11/28/23 Unknown History bupropion HCl 150 mg 24 hr tablet, mg PO 11/26/22 11/28/23 Unknown History extended release loratadine 10 mg tablet (Claritin) 10 mg PO DAILY 11/28/23 11/28/23 Unknown History methylphenidate HCl 36 mg mg PO 11/28/23 11/28/23 Unknown History tablet,extended release 24 hr Allergies Allergy/AdvReac Type Severity Reaction Status Date / Time orange juice Allergy Diarrhea Verified 10/15/24 22:44 [facility] Past Medical History Medical History GERD (gastroesophageal reflux disease) OCD (obsessive compulsive disorder) Abnormality of gait Developmental delay, moderate Spastic hemiplegic cerebral palsy Obesity, morbid, BMI 40.0-49.9 History of frequent ear infections Schizencephaly Intellectual disability Seizures Surgical History Surgical History History of bilateral femoral derotational osteotomy Due to femoral anteversion Family History Family History Father Diabetes mellitus Congestive heart failure Heart attack Father COVID Father , covid with respiratory failure No problems noted. Social History Social History Social History: The patient lives at home with her mother . She is a senior in high school where she attends modified classes due to her intellectual disability. She ambulates with a cane at home but uses a wheelchair at school. She is the youngest of 3 children. Primary care physician: Dr. Alla Polo ([facility] [place], [place]) Smoking packs per day: 0 Smoking cigarettes per day: 0.0 Smoking status: Never smoker Second hand tobacco smoke exposure: No Alcohol intake: never Substance use: never Substance use type: does not use Living arrangements: with family Occupation/Education: unemployed Gender identity (if verbalized by the patient): Female Sexual Orientation (if Verbalized by the Patient): Straight or Heterosexual Spiritual care concerns: No Agree to blood products: Yes Exam Narrative: GENERAL: Well-appearing, well-nourished, and in no acute distress. Facies consistent with stated PMH. HEAD: Normocephalic, atraumatic. EYES: Non injected, non icteric ENT: Nares clear, no rhinorrhea or epistaxis. Gross auditory acuity intact. Protuberant tongue but moist. NECK: Supple. No meningismus. CHEST: Speaking in full sentences. No respiratory distress. HEART: Mildly tachycardic rate and rhythm. . ABDOMEN: Obese but Soft, nondistended. No tenderness to palpation throughout. No rigidity or guarding. Not peritoneal : No CVA tenderness bilaterally. SKIN: Warm, dry, no rash. NEURO: No focal deficits. Alert and oriented. Answering questions. Following commands. PSYCH: Congruent mood and affect. Course Vital Signs Vital signs: Vital Signs Temperature 98.2 F 10/15/24 19:42 Pulse Rate 113 H 10/15/24 19:42 Respiratory Rate 16 10/15/24 19:42 Blood Pressure 145/119 H 10/15/24 19:42 Pulse Oximetry 98 10/15/24 19:42 Oxygen Delivery Room Air 10/15/24 19:42 Temperature 98.2 F 10/15/24 19:42 Pulse Rate 89 10/16/24 00:41 Respiratory Rate 30 H 10/16/24 00:41 Blood Pressure 129/95 H 10/15/24 22:42 Pulse Oximetry 97 10/16/24 00:41 Oxygen Delivery Room Air 10/15/24 22:42 MDM - Abdominal Pain MDM Narrative Medical decision making narrative: Patient presents with report of left lower quadrant abdominal pain starting 1:30 p.m.. No other associated symptoms. While waiting in the emergency department had complained to mother that was radiating towards her back but denies any flank pain. No CVA tenderness bilaterally. Denies any urinary symptoms. In the emergency department she is afebrile vital signs notable for tachycardic and hypertension. Urinalysis concerning for infection. Previous culture with no growth. Will give bactrim. First dose given in ED. test negative. Urine did not automatically reflex to culture. Culture was ordered and I did call lab to process. Discharged with prescription for rest of course of antibiotic. Advised follow- up with PCP. Otherwise stable for discharge. Differential Diagnosis Differential diagnosis: Likely abdominal pain, calculus of kidney, constipation, diverticulitis, endometriosis and other Lab Data Attestation: I reviewed the patient's lab results. Labs: Lab Results 10/16/24 10/16/24 Range/Units 00:37 00:41 Urine Color Dark yellow (Yellow) Urine Appearance Cloudy H (Clear) Urine pH 5.5 (5.0-9.0) Ur Specific Chandler 1.025 (1.001-1.035) Urine Protein Trace (Negative) mg/dL Urine Glucose (UA) Negative (Negative) mg/dL Urine Ketones Trace H (Negative) mg/dL Ur Blood (Man) Negative (Negative) Urine Nitrate Negative (Negative) Urine Bilirubin 1+ H (Negative) Urine Urobilinogen 1.0 (<2.0) mg/dL Leukocyte Esterase Rfl 1+ H (Negative) LALO/UL Urine RBC 0-2 (0-2) /hpf Urine WBC 11-20 H (0-3) /hpf Ur Squamous Epith Cells Moderate (Few) /hpf Urine Bacteria 4+ H /hpf Urine Casts 0-2 POC Urine HCG, Qual Negative (Negative) Imaging Data Attestation: I personally reviewed and interpreted this imaging study as follows: My impression: There is stool in the right hemipelvis although not a significant amount in the left hemipelvis, no signs of obstruction/air-fluid levels on my independent interpretation of abdominal x-ray Radiologist's impression: ITS Impressions Abdomen X-Ray 10/16/24 05:42 Impression: Moderate stool burden. Discharge Plan Discharge Clinical Impression: Abdominal pain, LLQ, UTI (urinary tract infection) Patient Disposition: Home Condition: Stable Instructions: Antibiotic Form, Urinary Tract Infection in Women (DC), Abdominal Pain (ED) Additional Instructions: There is evidence of urinary tract infection. You received your 1st dose of antibiotic in the emergency department the rest of the course has been prescribed. Follow-up with your primary care physician. If you do not have 1 the name of the doctors listed below. Return to the emergency department any new or worsening symptoms. Patient Language: Armenian Prescriptions: New sulfamethoxazole-trimethoprim [Bactrim DS] 800-160 mg tablet 1 tablet PO Q12H 5 Days Qty: 9 0RF Rx Instructions: received first dose in ED 10/16 No Action oxcarbazepine 300 mg tablet 300 mg PO BID zonisamide 100 mg capsule 100 mg PO BID norethindrone acetate 5 mg tablet 5 mg PO DAILY bupropion HCl 150 mg tablet extended release 24 hr PO ketoconazole 2 % cream 1 applic topical BID Qty: 60 3RF methylphenidate HCl 36 mg tablet extended release 24hr PO loratadine [Claritin] 10 mg tablet 10 mg PO DAILY baclofen 5 mg tablet 5 mg PO QHS Qty: 60 3RF Rx Instructions: 1-2 tabs at hs omeprazole 20 mg capsule,delayed release(DR/EC) See Rx Instructions .ROUTE .COMPLEX Qty: 90 1RF Dose Instruction: TAKE 1 CAPSULE BY MOUTH DAILY Rx Instructions: TAKE 1 CAPSULE BY MOUTH DAILY Follow-up/Referrals: PHYSICIAN NOT ON STAFF,NONSTAFF [Primary Care Provider] - Sukumar Montgomery MD [Physician] - Stand Alone Forms: Work/School Release IP Time of Disposition: 01:14
--- OUTSIDE RECORDS SUMMARY | 2024-10-15 23:49 | XMS_ITS | Continuity of Care Document ---
Author Name [facility] Organization [facility] Care Team Providers Care Line Server Name Role Phone [facility] Unavailable Unavailable Allergies, Adverse Reactions, Alerts Combined list of allergies from Department of Defense and Veterans Affairs facilities. It does not include entries that were removed or entered in error. Substance Category Reaction Severity Reaction type Status Date Reported Comments Source No Known Allergies Drug allergy (disorder) active 06/11/2010 [facility] Social History Combined list of available smoking, tobacco, and other social history from Department of Defense and Veterans Affairs facilities. Social History Type Response Date Comment Sour e This section is an empty social history section. [facility]
--- OUTSIDE RECORDS SUMMARY | 2024-10-15 23:49 | XMS_ITS | Patient Health Record ---
Author Organization [facility] Address [address] [facility] [address] [place], [place] [id number] Care Team Providers Care Horse Race Starter Name Role Phone [facility] Unavailable [phone] Emory Leyva Unavailable Unavailable Allergies Allergen (clinical drug ingredient) Drug/Non Drug Allergy documented on EMR Reaction Allergy Type Onset Date Status [place] Flavor Unknown Drug Allergy Act sabas Reason For Referral No Information Vital Signs Height-cm 160.02 cm 09/27/2024 Weight-kg 89.81 kg 09/27/2024 Height 63 in 09/27/2024 Weight 198 lbs 09/27/2024 BMI 35.07 kg/m2 09/27/2024 Encounters Encounter Location Date Provider Diagnosis [facility] [address] [place] [address] [id number] 09/27/[address]24 [address] [facility] Fungal infection of nail B35.1 ; Pain in right toe(s) M79.674 ; Pain in left toe(s) M79.675 ; 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, bilateral legs I70.213 and Acquired keratoderma L85.1 [facility] [address] [place] [address] [id number] 12/01/2023 [address] [facility] Fungal infection of nail B35.1 ; Pain in right toe(s) M79.674 ; Pain in left toe(s) M79.675 ; 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, bilateral legs I70.213 and Acquired keratoderma L85.1 [facility] [address] [place] [address] [id number] 02/16/2024 [address] [facility] Fungal infection of nail B35.1 ; Pain in right toe(s) M79.674 ; Pain in left toe(s) M79.675 ; 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, bilateral legs I70.213 and Acquired keratoderma L85.1 [facility] [address] [place] [address] [id number] 05/24/2024 [address] [facility] Fungal infection of nail B35.1 ; Pain in right toe(s) M79.674 ; Pain in left toe(s) M79.675 ; 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, bilateral legs I70.213 and Acquired keratoderma L85.1 [facility] [address] [place] [address] [id number] 07/26/2024 [address] [facility] Fungal infection of nail B35.1 ; Pain in right toe(s) M79.674 ; Pain in left toe(s) M79.675 ; 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, bilateral legs I70.213 and Acquired keratoderma L85.1 Assessments Encounter Date Diagnosis (ICD Code) Assessment Notes Treatment Notes Treatment Clinical Notes Section Notes 12/01/2023 Fungal infection of nail (ICD-10 - B35.1) 02/16/2024 Fungal infection of nail (ICD-10 - B35.1) 05/24/2024 Fungal infection of nail (ICD-10 - B35.1) 07/26/2024 Fungal infection of nail (ICD-10 - B35.1) 09/27/2024 Fungal infection of nail (ICD-10 - B35.1) 09/27/2024 Pain in right toe(s) (ICD-10 - M79.674) 07/26/2024 Pain in right toe(s) (ICD-10 - M79.674) 05/24/2024 Pain in right toe(s) (ICD-10 - M79.674) 02/16/2024 Pain in right toe(s) (ICD-10 - M79.674) 12/01/2023 Pain in right toe(s) (ICD-10 - M79.674) 12/01/2023 Pain in left toe(s) (ICD-10 - M79.675) 02/16/2024 Pain in left toe(s) (ICD-10 - M79.675) 05/24/2024 Pain in left toe(s) (ICD-10 - M79.675) 07/26/2024 Pain in left toe(s) (ICD-10 - M79.675) 09/27/2024 Pain in left toe(s) (ICD-10 - M79.675) 09/27/2024 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, bilateral legs (ICD-10 - I70.213) 07/26/2024 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, bilateral legs (ICD-10 - I70.213) 05/24/2024 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, bilateral legs (ICD-10 - I70.213) 02/16/2024 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, bilateral legs (ICD-10 - I70.213) 12/01/2023 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, bilateral legs (ICD-10 - I70.213) 12/01/2023 Acquired keratoderma (ICD-10 - L85.1) 02/16/2024 Acquired keratoderma (ICD-10 - L85.1) 05/24/2024 Acquired keratoderma (ICD-10 - L85.1) 07/26/2024 Acquired keratoderma (ICD-10 - L85.1) 09/27/2024 Acquired keratoderma (ICD-10 - L85.1) 09/27/2024 Other Nails 1-5 Bilateral were debrided extensively with nail nippers and emery board, reducing length and girth to pink healthy tissue with any subungual debris and necrotic tissue removed All corns or calluses, as described in the note above, were cut and pared utilizing a #15 blade 12/01/2023 Other Nails 1-5 Bilateral were debrided extensively with nail nippers and emery board, reducing length and girth to pink healthy tissue with any subungual debris and necrotic tissue removed All corns or calluses, as described in the note above, were cut and pared utilizing a #15 blade 02/16/2024 Other Nails 1-5 Bilateral were debrided extensively with nail nippers and emery board, reducing length and girth to pink healthy tissue with any subungual debris and necrotic tissue removed All corns or calluses, as described in the note above, were cut and pared utilizing a #15 blade 05/24/2024 Other Nails 1-5 Bilateral were debrided extensively with nail nippers and emery board, reducing length and girth to pink healthy tissue with any subungual debris and necrotic tissue removed All corns or calluses, as described in the note above, were cut and pared utilizing a #15 blade 07/26/2024 Other Nails 1-5 Bilateral were debrided extensively with nail nippers and emery board, reducing length and girth to pink healthy tissue with any subungual debris and necrotic tissue removed All corns or calluses, as described in the note above, were cut and pared utilizing a #15 blade Plan Of Treatment Next Appt Details Provider Name:COURT HAIR, 11/29/2024 01:50:00 PM, [address], [facility], [place], [place], [id number], Insurance Providers Payer Name Payer Address Payer Phone Subscriber Number Group Number Insured Name Patient Relationship to Insured Coverage Start Date Coverage End Date Medicare Part B [place] [address] [place] [id number] ANDREINA BEAUCHAMP Self - patient is the insured [facility] [place] [facility]) ATTN CLAIMS [address] [place] [address] [id number] NICOLAS BEAUCHAMP Spouse - patient is the spouse of the insured
--- OUTSIDE RECORDS SUMMARY | 2024-10-15 23:49 | XMS_ITS | Continuity of Care Document ---
Author Organization [facility] Address [place], [place] [address] Care Team Providers Care General Activities Therapist Name Role Phone Leana Pickens MD Unavailable [...] on Encounter [facility], [place], [address], [facility] Spasticity secondary to CP (chief complaint) Spastic hemiplegic cerebral palsyAmbulato ry dysfunctionSe izure disorderSchi encephalyBody mass index [BMI]40.0-44. 9, adult 5 Celio Dueñas. [address], [place], [place], [id number] . tel: [phone] [facility], [place], [address], [facility] Spasticity secondary to CP (chief complaint) Spastic hemiplegic cerebral palsyAmbulato ry dysfunctionSe izure disorderSchi encephalyBody mass index [BMI]40.0-44. 9, adult Jun- 5 Celio Dueñas. [address], [place], [place], [id number] . tel: [phone] [facility], [place], [address], [facility] Spasticity secondary to CP (chief complaint) Spastic hemiplegic cerebral palsyAmbulato ry dysfunctionSe izure disorderSchiz encephalyBody mass index [BMI]40.0-44. 9, adult 4 Celio Dueñas. [address], [place], [place], [id number] . tel: [phone] [facility], [place], [address], [facility] Spasticity secondary to CP (chief complaint) Spastic hemiplegic cerebral palsyAmbulato ry dysfunctionSe izure disorderSchiz encephalyBody mass index [BMI]40.0-44. 9, adult 4 Celio Dueñas. [address], [place], [place], [id number] . tel: [phone] [facility], [place], [address], [facility] Spasticity secondary to CP (chief complaint) Spastic hemiplegic cerebral palsyAmbulato ry dysfunctionSe izure disorderSchiz encephalyBody mass index [BMI]40.0-44. 9, adult 4 Celio Dueñas. [address], [place], [place], [id number] . tel: [phone] [facility], [place], [address], [facility] Spasticity secondary to CP (chief complaint) Body mass index [BMI]40.0-44. 9, adultSpastic hemiplegic cerebral palsyAmbulato ry dysfunctionSe izure disorderSchiz encephaly 4 Celio Dueñas. [address], [place], [place], [id number] . tel: [phone] [facility], [place], [address], [facility] Spasticity secondary to CP (chief complaint) Body mass index [BMI]40.0-44. 9, adultSpastic hemiplegic cerebral palsyAmbulato ry dysfunctionSe izure disorderSchiz encephaly 3 Celio Dueñas. [address], [place], [place], [id number] . 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 9, adultSpastic hemiplegic cerebral palsyAmbulato ry dysfunctionSe izure disorderSchiz encephaly 3 Celio Dueñas. [address], [place], [place], [id number] . tel: [phone] [facility], [place], [address], [facility] Spasticity (chief complaint) Body mass index [BMI]40.0-44. 9, adultSpastic hemiplegic cerebral palsyAmbulato ry dysfunctionSc hizencephalyS eizure disorder 3 Celio Dueñas. [address], [place], [place], [address] . tel: [phone] [facility], [place], [address], [facility] Spasticity. (chief complaint) Body mass index [BMI]40.0-44. 9, adultSpastic hemiplegic cerebral palsyRight sided weaknessAmbul atory dysfunctionSe izure disorderSchiz encephaly 3 Celio Dueñas. [address], [place], [place], [address] . tel: [phone] [facility], [place], [address], [facility] Spasticity. (chief complaint) Body mass index [BMI]40.0-44. 9, adultSpastic hemiplegic cerebral palsySeizure disorderSchiz encephalyAmbu latory dysfunctionRi ght sided weakness 2 Celio Dueñas. [address], [place], [place], [address] . tel: [phone] OFFICE/OUTPA TIENT VISIT NEW [facility], [place], [address], [facility] Spasticity (chief complaint) Right sided weaknessSpast ic hemiplegic cerebral palsyAmbulato ry dysfunctionSe izure disorderSchiz encephaly Sep-2 0-202 2 Celio Dueñas. [address], [place], [place], [id number] . tel: [phone] [facility], [address] [place] [address], [address], [place] tel:[phone] [facility] Primary osteoarthriti s of right hipSpastic triplegia, congenital Dec- 7 Andi Palacios. [address], [place], [address]. tel: [phone] OFFICE/OUTPA TIENT VISIT [facility], [address] [place] [address], [address], [place] tel:[phone] [facility] Spastic triplegia, congenital Sep-2 0- 7 Andi Palacios. [address], [place], [address]. tel: [phone] OFFICE/OUTPA TIENT VISIT [facility], [address] [place] [address], [address], [place] tel:[phone] [facility] Spastic triplegia, congenital 7 Andi Palacios. [address], [place], [address]. tel: [phone] [facility], [address] [place] [address], [address], [place] tel:[phone] [facility] Spastic triplegia, congenital Jan- 6-201 6 Andi Palacios. [address], [place], [address]. tel: [phone] [facility], [address] [place] [address], [address], [place] tel:[phone] [facility] Primary osteoarthriti s of right hip Apr- 3-201 6 Andi Palacios. [address], [place], [address]. tel: [phone] [facility], [address] [place] [address], [place], [address], [place] tel:[phone] [facility] Strain of hip flexor, left, initial encounter 6 Andi Palacios. [address], [place], [address]. tel: [phone] [facility], [address] [place] [address], [place], [address], [place] tel:[phone] [facility] Triplegia 5 Andi Palacios. [address], [place], [address]. tel: [phone] [facility], [address] [place] [address], [address], [place] tel:[phone] [facility] Infantile cerebral palsy 5 Andi Palacios. [address], [place], [address]. tel: [phone] [facility], [address] [place] [address], [address], [place] tel:[phone] [facility] Lumbago 5 Andi Palacios. [address], [place], [address]. tel: [phone] [facility], [address] [place] [address], [address], [place] tel:[phone] [facility] Infantile cerebral palsy 4 Andi Palacios. [address], [place], [address]. tel: [phone] Family History Family Member Type Diagnosis Age At Onset Father Problem Myocardial infarction Mother Problem Depression Mother Problem Osteoarthritis Mother Problem Hypertension Father Problem Depression Father Problem Hypertension Mother Problem Diabetes mellitus Father Problem Diabetes mellitus Payers Payer name Insurance type Covered republican ID Authorstevea abad(s) Medicare E2 OT [id number] [facility] [[email or web address]] E2 OT [id number] Social History Type Description Quantity Date Captured [...] CP (chief complaint). Description: Lidya ( for [employer]) is being seen in our office today, [...] looking for a suitable day program through [facility]. Her mom says that there may be an opening in the one in [place], which would be acceptable in terms of distance from their home in [place], [place]. Spasticity secondary to CP Cheno a [...] forward to being injected today. Spasticity Lidya ([place] [employer]) is being seen [...] to get her skin glued. Spasticity. Lidya ([place] [employer] for [employer]) is being seen [...] water and scraped her head. Spasticity. Lidya ([place] Saul estrada) is being seen in our [...] Dr. Drake under pediatric care. Spasticity Lidya ([place] Saul estrada) is being seen in our [...] dysfunction impression Lidya ambulates wit h a [employer]ombat[employer] crutch (which she calls Celia). She has done therapy in [facility] in [place], [place] and worked on balance, core and [...]
--- OUTSIDE RECORDS SUMMARY | 2024-10-15 23:49 | XMS_ITS ---
Author Organization [facility] Address [address] [facility] [address] [place], [place] [id number] Care Team Providers Care Union Organiser Name Role Phone COURT BAKER Unavailable [phone] Emory Leyva Unavailable Unavailable Allergies Allergen (clinical drug ingredient) Drug/Non Drug Allergy documented on EMR Reaction Allergy Type Onset Date Status [place] Flavor Unknown Drug Allergy Act sabas REASON FOR VISIT *General care Vital Signs Height 63 in 09/27/2024 Weight 198 lbs 09/27/2024 BMI 35.07 kg/m2 09/27/2024 Height-cm 160.02 cm 09/27/2024 Weight-kg 89.81 kg 09/27/2024 Encounters Encounter Location Date Provider Diagnosis [facility] [address] [place], [place] [id number] 09/27/[address] BAKER Fungal infection of nail B35.1 ; Pain in right toe(s) M79.674 ; Pain in left toe(s) M79.675 ; Atherosclerosis of [place] arteries of extremities with intermittent claudication, bilateral legs I70.213 and Acquired keratoderma L85.1 Assessments Encounter Date Diagnosis (ICD Code) Assessment Notes Treatment Notes Treatment Clinical Notes Section Notes 09/27/2024 Fungal infection of nail (ICD-10 - B35.1) 09/27/2024 Pain in right toe(s) (ICD-10 - M79.674) 09/27/2024 Pain in left toe(s) (ICD-10 - M79.675) 09/27/2024 Atherosclerosis of [place] arteries of extremities with intermittent claudication, bilateral legs (ICD-10 - I70.213) 09/27/2024 Acquired keratoderma (ICD-10 - L85.1) 09/27/2024 Other Nails 1-5 Bilateral were debrided extensively with nail nippers and emery board, reducing length and girth to pink healthy tissue with any subungual debris and necrotic tissue removed All corns or calluses, as described in the note above, were cut and pared utilizing a #15 blade Plan Of Treatment Treatment Notes Assessment Notes Other Nails 1-5 Bilateral were debrided extensively with nail nippers and emery board, reducing length and girth to pink healthy tissue with any subungual debris and necrotic tissue removed All corns or calluses, as described in the note above, were cut and pared utilizing a #15 blade Next Appt Details Provider Name:COURT HAIR, 11/29/2024 01:50:00 PM, [address], [address], [id number], Progress Notes * ESTELA BEAUCHAMPOB:2000 (23 yo F)Acc No.[id number]:09/27/2024 Patient: ANDREINA SHEPARD Provider: Gillian Baker DPM :2000 A ge:23 Y S ex:Female Date:09/27/2024 Address:[address] [place], [place] [id number] Subjective: * Chief Complaints: * 1 . *General care. * HPI: H PI: General care P atient presents to the office for at risk foot care. Patient states that their nails are thickened, elongated and painful. Patient states that it is aggravated by shoe gear. Onset is gradual. Patient denies being diabetic. Patient denies taking blood thinners. Date last seen by Dr. Leyva was 12/2022. Initials KB. * ROS: G eneral / Constitutional: Patient denies c hange in appetite, fatigue, chills, fever.? C ardiovascular: Chest pain d enies. N eurologic: Loss of use of extremity d enies. * Medical History: N o Reported Medical History.Medical History Verified. * Surgical History: D enies Past Surgical History. * Hospitalization/Major Diagno stic Procedure: D enies Past Hospitalization. * Family History: F ather: PRN - Father: :: Cardiac disorder,,known absent , :: Hypertension,,known absent , :: Diabetes,,known absent . M other: PRN - Mother: :: Hypertension,,known absent , :: Diabetes,,known absent . * Social History: M igrated Social History: M igrated Social History: Smoking Status : Never used tobacco , History of tobacco use :. * Medications: N one * Allergies: O range Flavor. Objective: * Vitals: S hoe Size: 7, Wt:198lbs, Wt-k.81 kg, Ht: 63 in, Ht-cm: 160.02 cm, BMI:35.07Index, Body Surface Area: 2. * Examination: P hysical Examination: Gen: T he patient is awake, alert, well developed, well groomed and well nourished. They are in no apparent distress. . Musc: F oot structure is normal bilateral. Muscle strength is 5/5 to all joints bilaterally. There is no pain on palpation. . Derm: T here is absent hair growth on bilateral feet. There are pigmentary changes of bilateral foot. The skin color is red. The skin texture is thin and shiny. Distal cooling noted in bilateral feet. Nails are thick, discolored, and dystrophic with subungual debris. They are painful to palpation. Hyperkeratotic lesions noted: left hallux. Neuro: G rossly intact to light touch bilateral . Vasc: P osterior tibialis pulse 0/4 bilaterally. Dorsalis pedis pulse 0/4 bilaterally. No edema noted. Capillary fill time > 3 seconds to all digits. . Assessment: * Assessment: 1. F ungal infection of nail - B35.1 (Primary) 2 . P ain in right toe(s) - M79.674 3 . P ain in left toe(s) - M79.675 4 . A therosclerosis of salam[place] arteries of extremities with intermittent claudication, bilateral legs - I70.213 & #160; 5 . A cquired keratoderma - L85.1 Plan: * Treatment: * Billing Information: * Visit Code: * Procedure Codes: * Electronic signature of COURT BAKER DPM on 10/15/2024 at 11:49 PM CDT Sign off status: Pending * Provider: Gillian Baker, NILE Date: 0 09/27/2024 Generated for Chandrakant vazquez/Jackie/Tom on: 0 10/15/2024 11:49 PM CDT History and Physical Notes * HPI (History of Present Illness) Category Sub-Category Detail Notes Category Not es HPI General care Patient presents to the office for at risk foot care. Patient states that their nails are thickened, elongated and painful. Patient states that it is aggravated by shoe gear. Onset is gradual. Patient denies being diabetic. Patient denies taking blood thinners. Date last seen by Dr. Leyva was 12/2022. Initials KB Examination Category Sub-Category Detail Notes Category Not es Physical Examination Gen: The patient is awake, alert, well developed, well groomed and well nourished. They are in no apparent distress. Vasc: Posterior tibialis p ulse 0/4 bilaterally. Dorsalis pedis pulse 0/4 bilaterally. No edema noted. Capillary fill time > 3 seconds to all digits. Neuro: Grossly intact to li ght touch bilateral Musc: Foot structure is no rmal bilateral. Muscle strength is 5/5 to all joints bilaterally. There is no pain on palpation. Derm: There is absent hair growth on bilateral feet. There are pigmentary changes of bilateral foot. The skin color is red. The skin texture is thin and shiny. Distal cooling noted in bilateral feet. Nails are thick, discolored, and dystrophic with subungual debris. They are painful to palpation. Hyperkeratotic lesions noted: left hallux
--- OUTSIDE RECORDS SUMMARY | 2024-10-15 23:49 | XMS_ITS | Clinical Summary ---
Author Organization [facility] Address [address] [facility] [place] [address] Care Team Providers Care Train Announcer Name Role Phone Federica Combs MD Primary Care Provider [phone] Source Comments [facility],non-owned Affiliates and Associated Physician Practices is amultiple site organization consisting of ambulatory clinics and hospital sitesin [place], [place], [place] and [place]. This disclosure is being madepursuant to the Care Everywhere program and may not contain all information available regarding this patient. Last updated 17.[employer] Allergies No known active allergies Medications * [...] Comments Blood Pressure 114/77 04/15/2020 12:09 PM [employer]GE [employer] MANAGER Pulse 92 04/15/2020 12:09 PM [employer]GE [employer] MANAGER Temperature 37.1 C (98.7 F) 04/15/2020 12:09 PM [employer]GE [employer] MANAGER Respiratory Rate 24 04/15/2020 12:09 PM [employer]GE [employer] MANAGER Oxygen Saturation 96% 01/17/2020 9:20 AM BR[employer]GE [employer]UB MANAGER Inhaled Oxygen Concentration - - Weight 88.7 kg (195 lb 8.8 oz) 04/15/2020 12:09 PM BR[employer]GE [employer]UB MANAGER Height 149.9 cm (4' 11) 01/16/2020 11:53 AM BRIDGE CLUB MANAGER Body Mass Index 39.5 01/16/2020 11:53 AM BRIDGE CLUB MANAGER Plan of Treatment Health Maintenance Due Date [...] age to complete this topic Insurance [facility] Address: [facility] [address] [place] [address] [employer] Advance Directives * Full Code (Latest Code Status on File) Date Activated Date Inactivated Comments 01/16/2020 12:55 AM 01/17/2020 3:47 PM Care Teams Train Announcer Relationship Specialty Start Date End Date Federica Combs MD [address] [place] [address] PCP - General Pediatrics 07/04/12
[2024-10-16] MEDS: ACETAMINOPHEN 500 MG TABLET 1000 MG PO (00:09)
[2024-10-16 00:41] VITALS: PULSE 89; RESP 30; O2SAT 97
[2024-10-16 00:55] LABS: Add Urine Microscopic? YES; Appearance Urine Cloudy (Clear); Glucose Urine UA Negative (Negative); Leukocyte Esterase Ur 1+ LEU/UL (Negative); Nitrate Urine Negative (Negative); Non Pathogenic Casts 0-2; Specific Grav Ur 1.025 (1.001-1.035)
[2024-10-16 01:08] LABS: BEDSIDEPREGUCG Negative (Negative)
[2024-10-16] MEDS: SULFAMETHOXAZOLE/TRIMETHOPRIM 800/160 MG DS TABLET 1 TAB PO (01:34)
== END 2024-10-16 01:45 | disposition home or self-care (01) ==
PROVIDERS: Emergency Provider Student in an Organized Health Care Education/Training Program
DX: N39.0 Urinary tract infection, site not specified (principal); R10.32 Left lower quadrant pain; K21.9 Gastro-esophageal reflux disease without esophagitis; G40.909 Epilepsy, unspecified, not intractable, without status epilepticus; F42.9 Obsessive-compulsive disorder, unspecified
CPT/HCPCS: 74018; 81001; 81025; 87086; 99283; A9270